=== PATIENT | female | born 1970 | race Hispanic/Latino ===

== ENCOUNTER 2020-08-16 15:17 | Observation (INO) | payer OTHER ==
[2020-08-16 15:52] LABS: Absolute Lymphocytes (CBC) 5.1 K/uL (0.7-4.9); Hematocrit 43.1 % (36.0-45.0); Lymphocytes % 28.8 % (15.3-44.8); MPV 9.4 fL (7.6-11.3)
--- NOTE | 2020-08-16 15:54 | RAD REPORT ---
EXAM DESCRIPTION: RAD - Chest Single View - 08/16/2020 3:48 pm CLINICAL HISTORY: CHEST PAIN Chest pain. COMPARISON: No comparisons FINDINGS: Portable technique limits examination quality. The lungs are grossly clear. The heart is normal in size. No displaced fractures. IMPRESSION: No acute intrathoracic process suspected.
[2020-08-16 15:57] LABS: Protime INR 0.92
[2020-08-16 16:07] LABS: ALT/SGPT 20 U/L (12-78); AST/SGOT 13 U/L (15-37); Albumin 3.2 g/dL (3.4-5.0); Alkaline Phosphatase 113 U/L (45-117); BUN Blood Urea Nitrogen 18 mg/dL (7-18); Bicarbonate 24 mmol/L (21-32); Bilirubin Direct < 0.1 mg/dL (0-0.2); Bilirubin Total 0.3 mg/dL (0.2-1.0); Glucose Level 78 mg/dL (74-106); Magnesium 2.1 mg/dL (1.8-2.4); NT PRO-BNP 59 pg/mL (<125); Potassium 3.7 mmol/L (3.5-5.1); Protein, Total 7.5 g/dL (6.4-8.2); Sodium Level 143 mmol/L (136-145); Troponin (Emerg Dept Use Only) < 0.02 ng/mL (0.0-0.045)
[2020-08-16] MEDS ORDERED: MORPHINE 4 MG/ML SYR ONE (16:07)
[2020-08-16] MEDS ORDERED: ONDANSETRON 4 MG/2 ML VIAL ONE (16:07)
[2020-08-16 16:33] LABS: Blood Morphology Comment NOT SEEN (NOT SEEN); Platelet Estimate ADEQ
--- NOTE | 2020-08-16 16:43 | RAD REPORT ---
EXAM DESCRIPTION: CT - Chest For Pe Angio - 08/16/2020 4:36 pm CLINICAL HISTORY: Chest pain. CHEST PAIN COMPARISON: No comparisons TECHNIQUE: CT angiogram of the pulmonary arteries was performed with MIP. All CT scans are performed using dose optimization technique as appropriate and may include automated exposure control or mA/KV adjustment according to patient size. FINDINGS: No evidence of pulmonary thromboembolism. No acute aortic finding demonstrated. The lungs are clear. No significant pericardial or pleural fluid. No concerning bony finding. IMPRESSION: No evidence of pulmonary thromboembolism. No acute lung findings.
--- NOTE | 2020-08-16 16:56 | ER ---
Nurse's Notes [facility] Name: Rebecca Sagastume Age: 50 yrs Sex: Female : 1970 Arrival Date: 08/16/2020 Time: 15:18 Bed 7 Private MD: Diagnosis: Chest pain, unspecified Presentation: 08/16 15:18 Chief complaint: EMS states: BURNING CHEST PAIN AND CYANOSIS WHILE MOWING LAWN. bp Coronavirus screen: At this time, the client does not indicate any symptoms associated with coronavirus-19. Ebola Screen: No symptoms or risks identified at this time. Initial Sepsis Screen: Does the patient meet any 2 criteria? HR > 90 bpm. No. Patient's initial sepsis screen is negative. Does the patient have a suspected source of infection? No. Patient's initial sepsis screen is negative. Risk Assessment: Do you want to hurt yourself or someone else? Patient reports no desire to harm self or others. Onset of symptoms was August 15, 2020 at 18:00. 15:18 Method Of Arrival: EMS: [facility] bp 15:18 Acuity: MER 3 bp Triage Assessment: 15:22 General: Appears in no apparent distress. uncomfortable, obese, Behavior is bp cooperative, appropriate for age, anxious. Pain: Denies pain. EENT: No deficits noted. Neuro: No deficits noted. Cardiovascular: Rhythm is sinus tachycardia. Respiratory: No deficits noted. GI: No signs and/or symptoms were reported involving the gastrointestinal system. : No signs and/or symptoms were reported regarding the genitourinary system. Derm: No deficits noted. Musculoskeletal: No deficits noted. 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 - Social history:: Smoking status: Patient denies any tobacco usage or history of. Screenin:23 Abuse screen: Denies threats or abuse. Denies injuries from another. Nutritional bp screening: No deficits noted. Tuberculosis screening: No symptoms or risk factors identified. Fall Risk None identified. 15:23 Abuse screen: Denies threats or abuse. Nutritional screening: No deficits noted. tw2 Tuberculosis screening: No symptoms or risk factors identified. Fall Risk None identified. Assessment: 15:23 General: SEE TRIAGE NOTE. bp 15:33 Pain: Complains of pain in chest Pain does not radiate. Pain began 1 day ago. pt states tw2 "it is still bothering me", provider notified. 16:40 Reassessment: PT RETURNED FROM CT. STATES NO CHANGE IN PAIN, PROVIDER NOTIFIED. bp 17:04 Reassessment: Patient appears in no apparent distress at this time. No changes from tw2 previously documented assessment. Patient and/or family updated on plan of care and expected duration. Pain level reassessed. Patient is alert, oriented x 3, equal unlabored respirations, skin warm/dry/pink. hospitalist Dr. Blayne Daniel at bedside at this time. Patient states symptoms have not improved. 18:00 Reassessment: Patient appears in no apparent distress at this time. PT SEEN BY ADMIT MD loving AND GI C/S. ADMIT IN PROCESS. 19:12 Reassessment: Patient appears in no apparent distress at this time. Patient and/or mg2 family updated on plan of care and expected duration. Pain level reassessed. Patient is alert, oriented x 3, equal unlabored respirations, skin warm/dry/pink. patient has fibromyalgia. provider informed about her pain and ordered pain medicine. 19:38 Reassessment: Report called to Celina SOTO on second floor. mg2 Vital Signs: 15:18 BP 159 / 96; Pulse 104; Resp 20; Temp 98.2; Pulse Ox 97% ; Weight 121.56 kg; Height 5 bp ft. 11 in. (180.34 cm); 15:41 BP 144 / 90; Pulse 85; Resp 20; Pulse Ox 98% on R/A; Pain 8/10; tw2 16:40 BP 127 / 104; Pulse 79; Resp 11; Pulse Ox 100% ; bp 17:30 BP 124 / 94; Pulse 79; Resp 24; Pulse Ox 100% ; bp 18:30 BP 140 / 90; Pulse 74; Resp 22; Pulse Ox 98% ; bp 19:05 BP 130 / 100; Pulse 74; Resp 18; Pulse Ox 97% on R/A; mg2 15:18 Body Mass Index 37.38 (121.56 kg, 180.34 cm) bp 15:41 provider notified. tw2 ED Course: 15:18 Patient arrived in ED. bp 15:19 Triage completed. bp 15:23 Sandra Celestin, RN is Primary Nurse. tw2 15:23 Arm band placed on. bp 15:23 Patient has correct armband on for positive identification. Bed in low position. Call bp light in reach. Side rails up X2. equipment monitor phototypesetting on. Pulse ox on. NIBP on. 15:25 Lul Tapia PA is PHCP. jmm 15:25 Danish Norris MD is Attending Physician. jmm 15:38 Inserted saline lock: 20 gauge in right forearm, using aseptic technique. Blood tw2 collected. 15:41 Patient maintains SpO2 saturation greater than 95% on room air. tw2 15:43 XRAY Chest (1 view) In Process Unspecified. EDMS 16:01 Notified Nurse Practitioner and/or Physician Manager Store of a critical lab result(s), tw2 D-Dimer 612. 16:36 CT Chest For PE Angio In Process Unspecified. EDMS 16:56 Blayne Daniel MD is Hospitalizing Provider. [facility] 19:39 No provider procedures requiring assistance completed. Patient admitted, IV remains in mg2 place. 19:50 covid swab sent. mg2 Administered Medications: 15:58 Drug: Zofran (Ondansetron) 4 mg Route: IVP; Site: right forearm; tw2 16:58 Follow up: Response: No adverse reaction tw2 16:00 Drug: morphine 4 mg Route: IVP; Site: right forearm; tw2 16:58 Follow up: Response: No adverse reaction; Pain is unchanged, physician notified; RASS: tw2 Alert and Calm (0) 17:02 Drug: Aspirin Chewable Tablet 324 mg Route: PO; tw2 18:19 Follow up: Response: No adverse reaction bp 17:03 Drug: Pepcid 20 mg Route: IVP; Site: right forearm; tw2 18:18 Follow up: Response: No adverse reaction bp 19:12 Drug: [place] 10 mg-325 mg 1 tabs Route: PO; mg2 Outcome: 16:56 Decision to Hospitalize by Provider. alberto 19:39 Instructed on the need for admit, Demonstrated understanding of instructions. mg2 19:49 Admitted to Med/surg accompanied by tech, via wheelchair, room 213, with chart, Report mg2 called to CHARLES Patrick 19:49 Condition: good 19:56 Patient left the ED. mg2 Signatures: Dispatcher [employer] EDMS Lul Tapia PA PA jmm Wise, Tara RN RN tw2 Timothy Pinto RN RN bp Reji Grullon, CHARLES RN mg2
--- NOTE | 2020-08-16 16:56 | EDPHYS ---
Physician Documentation [facility] Name: Rebecca Sagastume Age: 50 yrs Sex: Female : 1970 Arrival Date: 08/16/2020 Time: 15:18 Bed 7 Private MD: ED Physician Danish Norris HPI: 08/16 15:51 This 50 yrs old Female presents to ER via EMS with complaints of Chest Pain. m 15:51 The patient or guardian reports chest pain that is located primarily in the substernal [facility] area. Onset: gradually, 1 day(s) ago. The pain does not radiate. Associated signs and symptoms: Pertinent positives: headache. The chest pain is described as burning. Duration: The patient or guardian reports a single episode, that is still ongoing, and worsening. Modifying factors: The symptoms are alleviated by nothing. the symptoms are aggravated by lying on right side. This is a 50 year old female with a history of RA, HTN, that presents to the ED with complaints of chest pain beginning yesterday while mowing her lawn. Patient states the pain has been constant and worsened by lying her right side. . 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 - Social history:: Smoking status: Patient denies any tobacco usage or history of. ROS: 15:51 Constitutional: Negative for fever, chills, and weight loss. jmm 15:51 Abdomen/GI: Negative for abdominal pain, nausea, vomiting, diarrhea, and constipation. 15:51 Cardiovascular: Positive for chest pain. 15:51 Neuro: Positive for headache. 15:51 All other systems are negative. Exam: 15:33 ECG was reviewed by the Attending Physician. jmm 15:51 Constitutional: This is a well developed, well nourished patient who is awake, alert, jmm and in no acute distress. Head/Face: atraumatic. Eyes: EOMI, no conjunctival erythema appreciated ENT: Moist Mucus Membranes Neck: Trachea midline, Supple 15:51 Respiratory: Normal respirations, no respiratory distress appreciated Abdomen/GI: Non distended, soft Back: Normal ROM Skin: General appearance color normal MS/ Extremity: Moves all extremities, no obvious deformities appreciated, no edema noted to the lower extremities Neuro: Awake and alert, normal gait Psych: Behavior is normal, Mood is normal, Patient is cooperative and pleasant 15:51 Chest/axilla: Inspection: normal, Palpation: tenderness, that is moderate, of the anterior aspect of right upper chest. 15:51 Cardiovascular: Rate: normal, Rhythm: regular, Pulses: no pulse deficits are appreciated. Vital Signs: 15:18 BP 159 / 96; Pulse 104; Resp 20; Temp 98.2; Pulse Ox 97% ; Weight 121.56 kg; Height 5 bp ft. 11 in. (180.34 cm); 15:41 BP 144 / 90; Pulse 85; Resp 20; Pulse Ox 98% on R/A; Pain 8/10; tw2 16:40 BP 127 / 104; Pulse 79; Resp 11; Pulse Ox 100% ; bp 17:30 BP 124 / 94; Pulse 79; Resp 24; Pulse Ox 100% ; bp 18:30 BP 140 / 90; Pulse 74; Resp 22; Pulse Ox 98% ; bp 19:05 BP 130 / 100; Pulse 74; Resp 18; Pulse Ox 97% on R/A; mg2 15:18 Body Mass Index 37.38 (121.56 kg, 180.34 cm) bp 15:41 provider notified. tw2 MDM: 15:45 Patient medically screened. [facility] 16:55 Data reviewed: vital signs, nurses notes, lab test result(s), EKG, radiologic studies, [facility] CT scan, plain films. ED course: I discussed the patient with Dr. Daniel whom accepted admission. . 08/16 15:33 Order name: Basic Metabolic Panel; Complete Time: 16:36 [facility] 08/16 15:33 Order name: CBC with Diff; Complete Time: 16:36 [facility] 08/16 15:33 Order name: LFT's; Complete Time: 16:36 [facility] 08/16 15:33 Order name: Magnesium; Complete Time: 16:36 [facility] 08/16 15:33 Order name: NT PRO-BNP; Complete Time: 16:36 [facility] 08/16 15:33 Order name: PT-INR; Complete Time: 16:36 [facility] 08/16 15:33 Order name: Troponin (emerg Dept Use Only); Complete Time: 16:36 [facility] 08/16 15:33 Order name: XRAY Chest (1 view); Complete Time: 15:57 [facility] 08/16 15:33 Order name: D-Dimer; Complete Time: 16:36 [facility] 08/16 16:06 Order name: Manual Differential; Complete Time: 16:36 [facility] 08/16 16:07 Order name: CT Chest For PE Angio; Complete Time: 16:45 [facility] 08/16 18:20 Order name: Slides For Pathologist Review: CBC SMEAR FOR ABNORMAL CELLS bp 08/16 19:28 Order name: COVID-19 mg2 08/16 15:33 Order name: EKG; Complete Time: 15:34 [facility] 08/16 15:33 Order name: Cardiac monitoring; Complete Time: 15:42 [facility] 08/16 15:33 Order name: EKG - Nurse/Tech; Complete Time: 15:42 [facility] 08/16 15:33 Order name: IV Saline Lock; Complete Time: 15:42 [facility] 08/16 15:33 Order name: Labs collected and sent; Complete Time: 15:42 [facility] 08/16 15:33 Order name: O2 Per Protocol; Complete Time: 15:42 [facility] 08/16 15:33 Order name: O2 Sat Monitoring; Complete Time: 15:42 [facility] 08/16 17:19 Order name: CONS Physician Consult EDMS EC:33 Rate is 89 beats/min. Rhythm is regular. QRS [place] is Normal. CA interval is normal. QRS jmm interval is normal. QT interval is normal. No Q waves. T waves are Normal. No ST changes noted. Reviewed by me. Administered Medications: 15:58 Drug: Zofran (Ondansetron) 4 mg Route: IVP; Site: right forearm; tw2 16:58 Follow up: Response: No adverse reaction tw2 16:00 Drug: morphine 4 mg Route: IVP; Site: right forearm; tw2 16:58 Follow up: Response: No adverse reaction; Pain is unchanged, physician notified; RASS: tw2 Alert and Calm (0) 17:02 Drug: Aspirin Chewable Tablet 324 mg Route: PO; tw2 18:19 Follow up: Response: No adverse reaction bp 17:03 Drug: Pepcid 20 mg Route: IVP; Site: right forearm; tw2 18:18 Follow up: Response: No adverse reaction bp 19:12 Drug: [place] 10 mg-325 mg 1 tabs Route: PO; mg2 Disposition: 08/17 13:32 Co-signature as Attending Physician, Danish Norris MD I agree with the assessment and kdr plan of care. Disposition: 08/16/20 16:56 Hospitalization ordered by Blayne Daniel for Observation. Preliminary diagnosis is Chest pain, unspecified. - Bed requested for Telemetry/MedSurg (observation). - Status is Observation. mg2 - Condition is Stable. - Problem is new. - Symptoms have improved. Signatures: Dispatcher [employer] EDMS Danish Norris MD MD [facility] Lul Tapia PA PA [facility] Dirk Meza em1 Sandra Celestin RN RN tw2 Timothy Pinto, RN RN bp Reji Grullon, RN RN mg2 Corrections: (The following items were deleted from the chart) 08/16 18:51 16:56 Hospitalization Ordered by Blayne Daniel MD for Observation. Preliminary em1 diagnosis is Chest pain, unspecified. Bed requested for Telemetry/MedSurg (observation). Status is Observation. Condition is Stable. Problem is new. Symptoms have improved. [facility] 19:56 18:51 08/16/2020 16:56 Hospitalization Ordered by Blayne Daniel MD for Observation. mg2 Preliminary diagnosis is Chest pain, unspecified. Bed requested for Telemetry/MedSurg (observation). Status is Observation. Condition is Stable. Problem is new. Symptoms have improved. em1
[2020-08-16] MEDS ORDERED: ASPIRIN 81 MG CHEWABLE TABLET ONE (17:12)
[2020-08-16] MEDS ORDERED: FAMOTIDINE 20 MG/2 ML VIAL IV ONE (17:12)
--- NOTE | 2020-08-16 17:49 | P.HP ---
Certification for Inpatient Patient admitted to: Observation With expected LOS: <2 Midnights Practitioner: I am a practitioner with admitting privileges, knowledge of patient current condition, hospital course, and medical plan of care. Services: Services provided to patient in accordance with Admission requirements found in Title 42 Section 412.3 of the Code of Federal Regulations Patient History Date of Service: 08/16/20 Reason for admission: Chest pain History of Present Illness: 50 yo F , PMH: HTN, RA, fibromyalgia, prior smoker who presents to the ED due to substernal burning chest pain that began yesterday and has been constant. She states she was doing yd work when this began, with associated pallor and purple lips. Since then she has been feeling as though her heart is going to be beating out of her chest. She also reports she coughed up some bloody phlegm. She otherwise reports being in her usual state of health. She endorses taking Advil 08-12 pills a day for the past several months. She denies any history of gastric ulcer, no abdominal pain, no nausea/vomiting In the ED, lab work revealed a leukocytosis 17.7, hemoglobin 15.2, elevated D- dimer at 6:12, negative troponin. CTA: No evidence of PE, no acute lung findings Allergies Sulfa (Sulfonamide Antibiotics) Allergy (Verified 08/16/20 19:24) Rash - Past Medical/Surgical History -: HTN -: RA -: Fibromyalgia Past Surgical History: Unable to obtain - Family History Father -: Heart disease Sister -: GI disease (Ulcers) - Social History Smoking Status: Former smoker Alcohol use: No Place of Residence: Home Review of Systems 10-point ROS is otherwise unremarkable Physical Examination - Physical Exam General: Alert, In no apparent distress, Oriented x3 HEENT: Mucous membr. moist/pink, Sclerae nonicteric Neck: JVD not distended Respiratory: Clear to auscultation bilaterally, Normal air movement Cardiovascular: No edema, Regular rate/rhythm, Normal S1 S2 Musculoskeletal: No erythema, No tenderness Integumentary: No rashes Neurological: Normal speech, Normal affect - Studies Laboratory Data (last 24 hrs) 08/16/20 15:38: PT 10.9, INR 0.92 08/16/20 15:38: WBC 17.7 H, Hgb 15.2 H, Hct 43.1, Plt Count 240 08/16/20 15:38: Sodium 143, Potassium 3.7, BUN 18, Creatinine 0.91, Glucose 78, Magnesium 2.1, Total Bilirubin 0.3, AST 13 L, ALT 20, Alkaline Phosphatase 113 Assessment and Plan - Advance Directives Does patient have a Living Will: No Does patient have a Durable POA for Healthcare: No Physician Review Additional Text: Chest pain HTN RA Fibromyalgia -given her chronic inflammatory state and family history, history of smoking, patient does have risk factors for coronary artery disease -initially EKG without ischemic changes, troponin initially negative, will trend troponins -cardiology consulted -possible GI etiology given the amount of Advil patient takes, and reported coughing up blood -GI, Dr. Mobley consulted -pain control with morphine, patient received aspirin -will also give Protonix and Carafate for possible GI etiology -obtain home meds and restart as appropriate Dispo: pending workup, anticipate dc home in 24-48hrs Time Spent Managing Pts Care (In Minutes): 55
[2020-08-16] MEDS ORDERED: HYDROCODONE/APAP 10/325 TAB ONE (19:24)
[2020-08-16] MEDS ORDERED: ACETAMINOPHEN 500 MG TAB PO PRN (20:12)
[2020-08-16] MEDS: SUCRALFATE 1GM/10ML UCUP FT SCH (21:43)
[2020-08-16 22:23] VITALS: BMI 38.7
[2020-08-16] MEDS: MORPHINE 2 MG/ML SYR IV PRN (22:28)
[2020-08-17] MEDS: MORPHINE 2 MG/ML SYR IV PRN ×4 (04:01→22:51)
[2020-08-17 04:19] LABS: Protime INR 0.93
[2020-08-17 04:32] LABS: Absolute Lymphocytes (CBC) 4.8 K/uL (0.7-4.9); Basophils % 0.8 % (0-1.3); Hematocrit 43.7 % (36.0-45.0); MPV 10.5 fL (7.6-11.3); RBC Red Blood Cell Count 4.68 M/uL (3.86-4.86)
[2020-08-17 04:35] LABS: Albumin 3.1 g/dL (3.4-5.0); Bilirubin Total 0.3 mg/dL (0.2-1.0); Magnesium 2.2 mg/dL (1.8-2.4); Potassium 4.3 mmol/L (3.5-5.1); Protein, Total 7.6 g/dL (6.4-8.2)
[2020-08-17] MEDS ORDERED: GABAPENTIN 300 MG CAP PO PRN (04:58)
[2020-08-17] MEDS ORDERED: BACLOFEN 10 MG TAB PO PRN (04:58)
[2020-08-17 05:21] LABS: Blood Morphology Comment NOT SEEN (NOT SEEN); Platelet Estimate ADEQ
[2020-08-17] MEDS ORDERED: INFLUENZA VACCINE (for 3y+) 0.5 ML DOSE IMVAC ONE (06:00)
[2020-08-17] MEDS: SUCRALFATE 1GM/10ML UCUP FT SCH ×4 (07:30→20:15)
[2020-08-17] MEDS: DULOXETINE 30 MG CAP PO SCH (08:46)
[2020-08-17] MEDS: PANTOPRAZOLE 40MG TABLET PO SCH ×2 (08:46→15:49)
[2020-08-17] MEDS: ONDANSETRON 4 MG/2 ML VIAL IV PRN ×2 (08:46→22:52)
[2020-08-17] MEDS ORDERED: NA CHLORIDE 0.9% 1,000 ML ONE (14:08)
[2020-08-17] MEDS ORDERED: propofoL 200 MG/20 ML VIAL IV ONE (14:33)
--- NOTE | 2020-08-17 14:47 | ENDO RPT ---
[address], [address] EGD PROCEDURE REPORT EXAM DATE: 08/17/2020 PATIENT NAME: Rebecca Sagastume MR#: [id number] BIRTHDATE: 1970 ATTENDING: Erik Mobley Dr STATUS: inpatient LIGHT EQUIPMENT OPERATOR: Leigh Mccullough RN and Maritza Del Valle RN INDICATIONS: The patient is a 50 yr old Female here for an EGD due to hematemesis versus other PROCEDURE PERFORMED: EGD with biopsy MEDICATIONS: Per Anesthesia. TOPICAL ANESTHETIC: none CONSENT: The patient understands the risks and benefits of the procedure and understands that these risks include, but are not limited to: sedation, allergic reaction, infection, perforation and/or bleeding. Alternative means of evaluation and treatment include, among others: physical exam, x-rays, and/or surgical intervention. The patient elects to proceed with this endoscopic procedure. DESCRIPTION OF PROCEDURE: During intra-op preparation period all mechanical medical equipment was checked for proper function. Hand hygiene and appropriate measures for infection prevention was taken. Procedure, possible complications, and alternatives including but not limited to the possibility of bleeding, perforation, tear, infection, sepsis, need for surgery, need for blood transfusion, and anesthesia related complications were explained to the patient. After the risks, benefits and alternatives of the procedure were thoroughly explained, Informed consent was verified, confirmed and timeout was successfully executed by the treatment team. The patient was placed in the left lateral position. The patient was anesthetized with topical anesthesia. Through the anesthetized oropharyngeal area, the scope was passed without any difficulty. The EG-[id number] ([id number]) and [id number] ([id number]) endoscope was introduced through the mouth and advanced to the third portion of the duodenum. Retroflexed views revealed a small hiatal hernia. The gastroscope was then slowly withdrawn and removed. A small hiatal hernia was found Mild gastritis was found in the body < the antrum of the stomach. Multiple biopsies were obtained and sent to pathology. ADVERSE EVENTS: There were no complications. IMPRESSIONS: 1. Small hiatal hernia 2. Mild gastritis in the body < the antrum of the stomach, s/p biopsies RECOMMENDATIONS: 1. await biopsy results 2. acid suppression therapy REPEAT EXAM: Erik Mobley Dr eSigned: Erik Mobley Dr 08/17/2020 2:47 PM cc: CPT CODES: ICD9 CODES: PATIENT NAME: Rebecca Sagastume MR#: [id number]
--- NOTE | 2020-08-17 18:02 | P.PN ---
Subjective Date of Service: 08/17/20 Chief Complaint: Chest pain Subjective: Other (Continues with chest pressure, some improvement with burning sensation of chest Also with some chest tenderness which is different than the other pains) Physical Examination - Vital Signs Temperature: 97.5 F Blood Pressure: 135/77 Pulse: 65 Respirations: 18 Pulse Ox (%): 98 - Physical Exam General: Alert, Mild distress (Mild discomfort) HEENT: Mucous membr. moist/pink Respiratory: Clear to auscultation bilaterally, Normal air movement Cardiovascular: No edema, Regular rate/rhythm, Other (Chest wall tenderness to palpation) Gastrointestinal: Soft and benign, Non-distended, No tenderness Musculoskeletal: No erythema, No tenderness Integumentary: No rashes Neurological: Normal speech, Normal affect Assessment & Plan Physician Review Additional Text: Chest pain HTN RA Fibromyalgia -given her chronic inflammatory state and family history, history of smoking, patient does have risk factors for coronary artery disease -initial EKG without ischemic changes, troponin negative x3 -cardiology consulted -continues with moderate chest pressure. She reports is unrelated to the burning in her chest and the tenderness. She has never had a sensation like this before -burning in her chest, likely GI etiology given the amount of Advil patient takes, and reported coughing up blood -GI, Dr. Mobley consulted - for EGD today -Protonix and Carafate for possible GI etiology - patient reports this has improved her burning sensation, has not been improved her pressure like sensation -continue home meds Dispo: pending EGD, Cardiology concern this chest pressure may be cardiac etiology, suggesting monitoring the patient's another night to see if improves and also based off EGD results Time Spent Managing Pts Care (In Minutes): 35
--- NOTE | 2020-08-17 19:20 | CON ---
Date of Consultation: 08/16/2020 Reason For Consultation: Possible hematemesis. History Of Present Illness: The patient is a 50-year-old white female with history of hypertension, rheumatoid arthritis, fibromyalgia, presented to the hospital with chest pain. Cardiology evaluation today, troponin I and EKG have been unremarkable as per chart review. The patient also says that joann alvarenga either vomited blood or coughed up blood in a phlegm recently as well. Asked to see patient to [facility] for this. She reports taking Advil 8-12 tablets a day over the past several months. So suspic ion as she may have gastritis or peptic ulcer disease secondary to this excessive amount of ibuprofen being taken daily for her fibromyalgia, back pain, and rheumatoid arthritis pain. Past Medical History: Significant for rheumatoid arthritis, hypertension, fibromyalgia, essential tr emors. Allergies: TO SULFA MEDICATIONS. Medications: At home include prednisone. List will be below when I finish this. Social History: She is , 2 children, ages 29 and 23 years of age. This is a second marriage. Tobacco is positive. A third pack per day tobacco history. No alcohol. Family History: Father is alive with coronary artery disease, status post 4 vessel CABG and also car diac stents with 81 years of age. Mother at the age of 39 due to rheumatoid arthritis, which pr ogressed to polymyositis with possible cancer. She has a sister with gastric ulcers or peptic ulcer disease. Review of Systems: The patient has back pain, chest pain, but no shortness of breath. Possible hematemesis versus hemop tysis with no hematemesis, coffee-grounds emesis, melena, hematochezia, hematuria, dysuria, polydipsi a, dyspepsia. No shortness of breath, seizure, syncope. No depression, anxiety noted. Physical Examination: Vital Signs: The patient is 5 feet 11, 178 pounds, BMI of 38.8 kg/meter sq with a temperature of 98. 3 degrees Fahrenheit, pulse 85, respirations 20, blood pressure 144/90, O2 saturation 98% in the [facility] area. General: She is an obese female lying in bed, in no acute distress. Older sister is at bedside. HEENT: Normocephalic, atraumatic. Anicteric. Pupils are equal, round, and reactive to light. Extr aocular movements are intact. Oropharynx is clear. Neck: Supple, no masses. Respirations: Clear to auscultation bilaterally. Cardiac: Regular rate and rhythm. No gallops or rubs. Abdomen: Positive bowel sounds. Soft, nontender, nondistended. No hepatosplenomegaly. Mildly obes e. Extremities: No clubbing, cyanosis, or edema. 2+ pulses. Neuro: Alert and oriented X3. Grossly nonfocal. 5/5 motor strength. Sensation intact to light wan ch. Laboratory Data: The patient has a white count of 17.7, on prednisone. Hemoglobin 15.2, hematocrit 43.1, MCV of 92, platelet count 240, polys of 61%, lymphocytes 29%, monocytes 9%, eosinophils 1%. PT of 10.9, INR of 0.92. D-dimer 612. Sodium 143, potassium 3.7, chloride 113, bicarb 24, BUN of 18, creatinine 0.91, glucose 78, calcium 8.9, magnesium 2.1. Total bilirubin 0.3, direct bilirubin less than 0.1. AST of 13, ALT of 20, alkaline phosphatase 113. Rapid troponin I of less than 0.02 at [facility] x2. B-type natriuretic peptide of 59 is negative. Total protein 7.5, albumin 3.2. Cholesterol 1 77, triglycerides 196, LDL of 104, HDL 34. Imaging: Chest x-ray, no acute pulmonary findings. CT chest, no evidence of pulmonary embolism and no acute lung findings on CT of the chest. Impression: 1.Hematemesis. The patient is consuming 12 Advil per day for her fibromyalgia, back pain, rheumatoi d arthritis pain, could have peptic ulcer disease like her sister. I did not she suffer from hematem esis. Still it is unclear at this time whether this it is hematemesis or hemoptysis. 2.Chest pain could be due to her excessive use of pills with sometimes causing pill esophagitis lead ing to hematemesis or other. 3.White count 17.7, polys only 60.6%, indicative of hematologic disorder or it is from her prednison e use, which she has been using. 4.History of hypertension, rheumatoid arthritis, fibromyalgia, and essential tremors. Medications: Home medications are: 1.Gabapentin. 2.Higginson. 3.Baclofen. 4.Duloxetine. 5.Meclizine. 6.Prednisone 10 mg p.o. daily. Recommendation: 1.Await Cardiology evaluation. 2.May consider EGD evaluation. 3.PPI therapy. 4.Serial H and H, and transfuse p.r.n. 5.Consider Hematology consult. 6.Check CBC with smear noted with polyp, probably related to her prednisone use, the elevation of he r white count with no left shift. WS/MODL Voice ID: [id number] Report ID: [id number]
[2020-08-18 05:32] LABS: Absolute Lymphocytes (CBC) 2.5 K/uL (0.7-4.9); Basophils % 0.7 % (0-1.3); Hematocrit 43.5 % (36.0-45.0); Lymphocytes % 25.4 % (15.3-44.8); MPV 9.8 fL (7.6-11.3); RBC Red Blood Cell Count 4.67 M/uL (3.86-4.86)
[2020-08-18 05:48] LABS: Magnesium 2.3 mg/dL (1.8-2.4); Potassium 3.8 mmol/L (3.5-5.1)
[2020-08-18] MEDS ORDERED: POTASSIUM CL SA 10 MEQ TAB PO ONE (08:00)
[2020-08-18] MEDS: PANTOPRAZOLE 40MG TABLET PO SCH (08:29)
[2020-08-18] MEDS: DULOXETINE 30 MG CAP PO SCH (08:29)
[2020-08-18] MEDS: SUCRALFATE 1GM/10ML UCUP FT SCH ×2 (08:29→11:43)
[2020-08-18 10:55] VITALS: O2SAT 98
--- NOTE | 2020-08-18 11:38 | P.PN ---
Subjective Date of Service: 08/18/20 Chief Complaint: Chest pain Subjective: Improving (She denies chest pain now on PPI therapy. She denies seeing any more blood. She feels well and wants to go home.) Review of Systems Unremarkable Physical Examination - Vital Signs Temperature: 97.5 F Blood Pressure: 136/71 Pulse: 78 Respirations: 18 Pulse Ox (%): 97 - Physical Exam General: Alert, In no apparent distress, Oriented x3, Cooperative HEENT: Atraumatic, Normocephalic, PERRLA, EOMI Neck: Supple Respiratory: Normal air movement Cardiovascular: Normal pulses Gastrointestinal: Soft and benign, No tenderness, No masses, No rebound, No guarding Musculoskeletal: No swelling, No erythema Neurological: Normal speech, Normal strength at 5/5 x4 extr Assessment And Plan - Current Problems (Diagnosis) (1) Chest pain Current Visit: Yes Status: Acute (2) Hematemesis Current Visit: Yes Status: Acute (3) Hemoptysis Current Visit: Yes Status: Acute (4) Fibromyalgia Current Visit: Yes Status: Acute (5) Rheumatoid arthritis Current Visit: Yes Status: Acute (6) Gastritis Current Visit: Yes Status: Acute (7) Hiatal hernia Current Visit: Yes Status: Acute (8) Obesity (BMI 30-39.9) Current Visit: Yes Status: Acute Comment: BMI 38.8 - Plan REC: 1) continue PPI bid 2) weight loss 3) GI clinic f/u Physician Review Additional Text: Chest pain HTN RA Fibromyalgia -given her chronic inflammatory state and family history, history of smoking, patient does have risk factors for coronary artery disease -initial EKG without ischemic changes, troponin negative x3 -cardiology consulted -continues with moderate chest pressure. She reports is unrelated to the burning in her chest and the tenderness. She has never had a sensation like this before -burning in her chest, likely GI etiology given the amount of Advil patient takes, and reported coughing up blood -GI, Dr. Mobley consulted - for EGD today -Protonix and Carafate for possible GI etiology - patient reports this has improved her burning sensation, has not been improved her pressure like sensation -continue home meds Dispo: pending EGD, Cardiology concern this chest pressure may be cardiac etiology, suggesting monitoring the patient's another night to see if improves and also based off EGD results
--- NOTE | 2020-08-18 13:27 | CON ---
Date of Consultation: 08/17/2020 Reason For Consultation: Chest pain. History Of Present Illness: This is a 50-year-old female with history of hypertension, rheumatoid ar thritis, fibromyalgia, recently quit smoking, used to smoke 5-10 cigarettes per day up until a few da ys back, comes in with burning sensation in the retrosternal area. This is constant for a day prior to presentation, not related to exertion. It was documented that she had some purple lips as well at that time with some shortness of breath, coughing with some sputum production. No particular chest pain. Evaluated by GI and needs to have an EGD for possible GI source of the symptoms. Past Medical History: As outlined above in the HPI. Medications: Refer to reconciliation sheet for detailed list. Allergies: SULFA. Social History: She is a smoker. Does not drink, use any drugs. Family History: No premature coronary artery disease or cancer. Review of Systems: All systems reviewed and they were negative except what mentioned in HPI. Physical Examination: Vital Signs: Temperature is 97.5, pulse 78, breathing 18, blood pressure is 136/71, saturating 97% o n room air. General: Pleasant, middle-aged female, obese, in no distress. Head and Neck: Pupils are equal, react to light. Intact eye movements. No JVD. No cervical lympha denopathy. Neck: Supple. Thyroid is not enlarged. Lungs: Clear to auscultation bilaterally. No rhonchi, rales, or crackles. No accessory muscle use. Heart: Regular rate and rhythm. No extra sounds. Abdomen: Soft, nontender. Bowel sounds positive. No organomegaly. No masses or hernia. No rigidi ty or rebound. Extremities: No edema, clubbing, cyanosis. Intact pulses. Skin: No rash noted. Neurologic: Alert, awake, oriented x3. No acute focal deficits appreciated. Investigations: Troponin x3 are negative. Creatinine is 0.81. LDL cholesterol is 104. Hemoglobin is 14.9; white blood cell count is 14.6, down from 17.7. EKG without specific acute abnormalities. Assessment And Plan: 1.Chest pain, burning, a pressure-like, constant which makes it atypical. Cardiac enzymes are negat nadeem. No specific acute EKG changes. Further workup is recommended with an exercise stress test. If the patient's pain gets under control and the cardiac enzymes remain negative, the patient can be re leased to follow up as an outpatient with exercise stress test and echo. 2.To follow on the EGD results to rule out GI as a source. Thank you for the consultation. /JARRED Voice ID: [id number] Report ID: [id number]
--- NOTE | 2020-08-18 14:35 | P.DS ---
Admission Date: 08/16/20 Discharge Date: 08/18/20 Primary Care Provider: Dr. Cash Davis Disposition: ROUTINE DISCHARGE Discharge Condition: GOOD Reason for Admission: Chest pain Consultations: Cardiology - Dr. Calvillo GI - Dr. Mobley Procedures: CXR (08/16): No acute intrathoracic process. CTA chest (08/16): No evidence of PE, no acute lung findings. EGD (08/17): Small hiatal hernia, mild gastritis in the body/antrum, s/p biopsies Problem list Burning in chest pain Pressure-like chest pain HTN Rheumatoid arthritis Fibromyalgia Brief History of Present Illness: 50 yo F , PMH: HTN, RA, fibromyalgia, prior smoker who presents to the ED due to substernal burning chest pain that began yesterday and has been constant. She states she was doing yd work when this began, with associated pallor and purple lips. Since then she has been feeling as though her heart is going to be beating out of her chest. She also reports she coughed up some bloody phlegm. She otherwise reports being in her usual state of health. She endorses taking Advil 08-12 pills a day for the past several months. She denies any history of gastric ulcer, no abdominal pain, no nausea/vomiting In the ED, lab work revealed a leukocytosis 17.7, hemoglobin 15.2, elevated D- dimer at 6:12, negative troponin. CTA: No evidence of PE, no acute lung findings Hospital Course: Patient was admitted, troponins were trended and remained negative, she was started on b.i.d. Protonix and Carafate p.r.n.. She reported improvement in her burning chest pain sensation. GI was consulted and and took patient for EGD (mild gastritis). Cardiology was consulted due to patient's pressure-like sensation. This initially did not improve, but then on the evening of 08/17 and into the morning of 08/18 she reported slow improvement. It was discussed that this may have a cardiac etiology since she had resolution of her burning pain but this pressure-like sensation persisted. The option to stay and have a stress test was given, however patient preferred to do this as an outpatient since she had notable improvement. Of note, her leukocytosis resolved. She will be discharged home on Protonix 40 mg b.i.d.. She was advised to follow up with her PCP within 3-5 days, GI and a few weeks, Cardiology in 2-3 weeks to schedule outpatient stress test. Vital Signs/Physical Exam: Temp Pulse Resp BP Pulse Ox 97.5 F 78 18 136/71 97 08/18/20 11:47 08/18/20 11:47 08/18/20 11:47 08/18/20 11:47 08/18/20 11:47 General: Alert, In no apparent distress HEENT: Mucous membr. moist/pink, Sclerae nonicteric Neck: No LAD Respiratory: Clear to auscultation bilaterally, Normal air movement Cardiovascular: No edema, Regular rate/rhythm, Normal S1 S2 Gastrointestinal: Normal bowel sounds, Soft and benign, Non-distended, No tenderness Musculoskeletal: No erythema, No tenderness Integumentary: No rashes Neurological: Normal speech, Normal affect Laboratory Data at Discharge: WBC 9.8 K/uL (4.3-10.9) D 08/18/20 05:07 Hgb 14.9 g/dL (12.0-15.0) 08/18/20 05:07 Hct 43.5 % (36.0-45.0) 08/18/20 05:07 Plt Count 220 K/uL (152-406) 08/18/20 05:07 PT 11.0 SECONDS (9.5-12.5) 08/17/20 03:45 INR 0.93 08/17/20 03:45 Sodium 142 mmol/L (136-145) 08/18/20 05:07 Potassium 3.8 mmol/L (3.5-5.1) 08/18/20 05:07 BUN 14 mg/dL (7-18) 08/18/20 05:07 Creatinine 0.81 mg/dL (0.55-1.3) 08/18/20 05:07 Glucose 93 mg/dL (74-106) 08/18/20 05:07 Phosphorus 4.0 mg/dL (2.5-4.9) 08/18/20 05:07 Magnesium 2.3 mg/dL (1.8-2.4) 08/18/20 05:07 Total Bilirubin 0.3 mg/dL (0.2-1.0) 08/17/20 03:45 AST 18 U/L (15-37) 08/17/20 03:45 ALT 20 U/L (12-78) 08/17/20 03:45 Alkaline Phosphatase 100 U/L (45-117) 08/17/20 03:45 Troponin I < 0.02 ng/mL (0.0-0.045) 08/17/20 08:04 Triglycerides 196 mg/dL (<150) H 08/17/20 03:45 Cholesterol 177 mg/dL (<200) 08/17/20 03:45 HDL Cholesterol 34 mg/dL (40-60) L 08/17/20 03:45 Cholesterol/HDL Ratio 5.21 08/17/20 03:45 Home Medications: Baclofen 1 tab PO BID 08/17/20 Duloxetine HCl 1 cap PO DAILY 08/17/20 Gabapentin 1 cap PO SEECOM 08/17/20 Hydrocodone/Acetaminophen [Hydrocodone-Acetamin 7.5-325] 1 tab PO BID 08/17/20 Meclizine HCl 1 tab PO DAILY 08/17/20 predniSONE [Deltasone*] 1 tab PO DAILY 08/17/20 Pantoprazole [Protonix Tab*] 40 mg PO BIDAC 30 Days #60 tab 08/18/20 New Medications: Pantoprazole [Protonix Tab*] 40 mg PO BIDAC 30 Days #60 tab Patient Discharge Instructions: Follow up with PCP within 3-5 days. Follow up with Dr. Mobley (GI clinic). Follow up with Dr. Calvillo (Cardiology) for outpatient stress test in the next few weeks. Medication changes: Protonix (pantoprazole) 40mg twice a day Diet: AHA Activity: Ad jerome Followup: Erik Mobley MD [ASSOCIATE-ACTIVE - CAN ADMIT] - (Call to make an appointment. ) Pierce Calvillo MD [OUTSIDE PHYSICIAN] - (Call to make an appointment. ) Time spent managing pt's care (in minutes): 35
[2020-08-18 18:47] VITALS: BP 146/67; TEMP 97
== END 2020-08-18 13:26 | disposition home or self-care (01) ==
LOC: ER 15:17 → ERHOLD 17:15 → 2ND 19:41
PROVIDERS: ADMIT Hospitalist; ATTEND Hospitalist
PROC: 0DB78ZX Excision of Stomach, Pylorus, Via Natural or Artificial Opening Endoscopic, Diagnostic (ICD-10-PCS; principal; 2020-08-17 13:30)
DX: R07.89 Other chest pain (principal); I10 Essential (primary) hypertension; K29.70 Gastritis, unspecified, without bleeding; K92.0 Hematemesis; M06.9 Rheumatoid arthritis, unspecified; M79.7 Fibromyalgia; Z20.828 Contact with and (suspected) exposure to other viral communicable diseases; Z87.891 Personal history of nicotine dependence; E66.9 Obesity, unspecified; Z68.38 Body mass index [BMI] 38.0-38.9, adult; K44.9 Diaphragmatic hernia without obstruction or gangrene; R04.2 Hemoptysis; G25.0 Essential tremor; Z79.52 Long term (current) use of systemic steroids
CPT/HCPCS: 43239; 93005; 85025 ×3; 80048 ×2; 36415 ×2; 83735 ×3; 88312; 84100; 85610 ×2; 80061; 85379; 80076; 88305; 84484 ×4; 80053; 83880; 71275; 71045; 94760 ×3; 96375; 96374; 99285; U0002; Q9967; J2704; J2270 ×5; G0378 ×5; J7030; J2405 ×3

== ENCOUNTER 2022-01-05 10:35 | Emergency (ER) | payer BC, OTHER ==
[2022-01-05] MEDS ORDERED: KETOROLAC 30 MG/ML INJ ONE (12:01)
--- NOTE | 2022-01-05 14:01 | RAD REPORT ---
EXAM DESCRIPTION: RAD - Chest Pa And Lat (2 Views) - 01/05/2022 1:55 pm CLINICAL HISTORY: BLUNT CHEST TRAUMA Chest pain. COMPARISON: Chest Single View dated 08/16/2020 FINDINGS: The lungs are clear. The heart is normal in size. No displaced fractures. IMPRESSION: No acute or concerning finding suspected.
--- NOTE | 2022-01-05 14:10 | ER ---
Nurse's Notes [facility] Name: Rebecca Sagastume Age: 51 yrs Sex: Female : 1970 Arrival Date: 01/05/2022 Time: 10:39 Bed 10 Private MD: Diagnosis: Contusion of left front wall of thorax Presentation: 01/05 10:53 Chief complaint: Patient states: "Wednesday I was moving a sink and I fell onto the sink ab2 and hit my chest and left breast. The pain is getting worse." Pt denies SOB or chest pain, but states she has pain with deep breathing. 10:53 Acuity: MER 4 ab2 10:53 Method Of Arrival: Ambulatory ab2 10:54 Coronavirus screen: Vaccine status: Patient reports receiving the 2nd dose of the covid ab2 vaccine. Client denies travel out of the [place] in the last 14 days. At this time, the client does not indicate any symptoms associated with coronavirus-19. Ebola Screen: Patient negative for fever greater than or equal to 101.5 degrees Fahrenheit, and additional compatible Ebola Virus Disease symptoms Patient denies exposure to infectious person. Patient denies travel to an Ebola-affected area in the 21 days before illness onset. No symptoms or risks identified at this time. Initial Sepsis Screen: Does the patient meet any 2 criteria? No. Patient's initial sepsis screen is negative. Does the patient have a suspected source of infection? No. Patient's initial sepsis screen is negative. Risk Assessment: Do you want to hurt yourself or someone else? Patient reports no desire to harm self or others. Onset of symptoms is unknown. Triage Assessment: 10:57 General: Appears in no apparent distress. uncomfortable, Behavior is calm, cooperative, ab2 appropriate for age. Pain: Complains of pain in xiphoid area, mid-sternal area and left breast. Historical: - Allergies: 10:56 Sulfa (Sulfonamide Antibiotics); ab2 - Home Meds: 10:56 Baclofen Oral [Active]; Coreg Oral [Active]; gabapentin Oral [Active]; Prednisone Oral ab2 [Active]; Propranolol Oral [Active]; Meclizine Oral [Active]; Hydrocodone-Acetaminophen Oral [Active]; - PMHx: 10:56 Fibromyalgia; Rheumatoid Arthritis; tremors; Hypertension; ab2 - Immunization history:: Adult Immunizations up to date. - Social history:: Smoking status: Patient reports the use of cigarette tobacco products, smokes one-half pack cigarettes per day. Screenin:51 Abuse screen: Denies threats or abuse. Denies injuries from another. Nutritional tobias screening: No deficits noted. Tuberculosis screening: No symptoms or risk factors identified. Fall Risk Assessment: 11:51 General: Appears in no apparent distress. Behavior is calm, cooperative. Pain: tobias Complains of pain in anterior aspect of left upper chest and left breast. Musculoskeletal: Tenderness present in anterior aspect of left upper chest and left breast Reports pain in anterior aspect of left upper chest, left nipple and left breast. Vital Signs: 10:54 BP 132 / 79; Pulse 64; Resp 19; Temp 97.7(TE); Pulse Ox 98% on R/A; Weight 122.47 kg; ab2 Height 5 ft. 11 in. (180.34 cm); Pain 9/10; 10:54 Body Mass Index 37.66 (122.47 kg, 180.34 cm) ab2 ED Course: 10:39 Patient arrived in ED. ds1 10:54 Triage completed. ab2 10:55 Daphnie Vogel FNP-C [facility]. kb 10:55 Rama Turpin MD is Attending Physician. kb 10:57 Arm band placed on left wrist. ab2 11:51 Patient has correct armband on for positive identification. tobias 11:51 No provider procedures requiring assistance completed. tobias 13:54 Chest Pa And Lat (2 Views) XRAY In Process Unspecified. EDMS 14:19 Hortencia Castellanos, CHARLES is Primary Nurse. ss 14:27 Patient did not have IV access during this emergency room visit. ss Administered Medications: 12:01 Drug: Ketorolac 30 mg Route: IM; Site: left gluteus; tobias 12:01 Follow up: Response: No adverse reaction tobias Outcome: 14:09 Discharge ordered by . kb 14:27 Discharged to home ambulatory. ss 14:27 Condition: good 14:27 Discharge instructions given to patient, family, Instructed on discharge instructions, follow up and referral plans. medication usage, Demonstrated understanding of instructions, follow-up care, Prescriptions given X 2. 14:29 Patient left the ED. ss Signatures: Dispatcher [employer] EDMS Daphnie Vogel, HAT CLEANER-C HAT CLEANER-Ckb Simran Arreola ds1 Hortencia Castellanos, CHARLES RN ss Mami Velásquez RN RN Yair Stone abRosalinda
--- NOTE | 2022-01-05 14:10 | EDPHYS ---
Physician Documentation [facility] Name: Rebecca Sagastume Age: 51 yrs Sex: Female : 1970 Arrival Date: 01/05/2022 Time: 10:39 Bed 10 Private MD: ED Physician Rama Turpin HPI: 01/05 14:07 This 51 yrs old Female presents to ER via Ambulatory with complaints of Fall kb Injury. 14:07 Details of fall: The patient fell from an upright position. Onset: The symptoms/episode kb began/occurred yesterday. Associated injuries: The patient sustained injury to the chest, pain with breathing, pain with movement, tenderness. Severity of symptoms: At their worst the symptoms were moderate, in the emergency department the symptoms are unchanged. The patient has not experienced similar symptoms in the past. The patient has not recently seen a physician. Pt states she was carrying a sink and fell, hitting her left chest on the sink. c/o pain to left chest. Worse with movement and deep breathing. Historical: - Allergies: 10:56 Sulfa (Sulfonamide Antibiotics); ab2 - Home Meds: 10:56 Baclofen Oral [Active]; Coreg Oral [Active]; gabapentin Oral [Active]; Prednisone Oral ab2 [Active]; Propranolol Oral [Active]; Meclizine Oral [Active]; Hydrocodone-Acetaminophen Oral [Active]; - PMHx: 10:56 Fibromyalgia; Rheumatoid Arthritis; tremors; Hypertension; ab2 - Immunization history:: Adult Immunizations up to date. - Social history:: Smoking status: Patient reports the use of cigarette tobacco products, smokes one-half pack cigarettes per day. ROS: 14:06 Constitutional: Negative for fever, chills, and weight loss. kb 14:06 Cardiovascular: Positive for chest pain, Negative for edema, orthopnea, palpitations, paroxysmal nocturnal dyspnea. 14:06 All other systems are negative. Exam: 14:07 Constitutional: This is a well developed, well nourished patient who is awake, alert, kb and in no acute distress. Head/Face: Normocephalic, atraumatic. Cardiovascular: Regular rate and rhythm with a normal S1 and S2. No gallops, murmurs, or rubs. No pulse deficits. Respiratory: Respirations even and unlabored. No increased work of breathing. Talking in full sentences Skin: Warm, dry with normal turgor. Normal color. MS/ Extremity: Pulses equal, no cyanosis. Neurovascular intact. Full, normal range of motion. Neuro: Awake and alert, GCS 15, oriented to person, place, time, and situation. Moves all extremities. Normal gait. Psych: Awake, alert, with orientation to person, place and time. Behavior, mood, and affect are within normal limits. 14:07 Chest/axilla: Inspection: normal, Palpation: tenderness, that is moderate, of the left breast, that totally reproduces the patient's complaints. Vital Signs: 10:54 BP 132 / 79; Pulse 64; Resp 19; Temp 97.7(TE); Pulse Ox 98% on R/A; Weight 122.47 kg; ab2 Height 5 ft. 11 in. (180.34 cm); Pain 9/10; 10:54 Body Mass Index 37.66 (122.47 kg, 180.34 cm) ab2 MDM: 11:31 Patient medically screened. kb 14:06 Data reviewed: vital signs, nurses notes. Data interpreted: Pulse oximetry: on room air kb is 98 %. Interpretation: normal. Counseling: I had a detailed discussion with the patient and/or guardian regarding: the historical points, exam findings, and any diagnostic results supporting the discharge/admit diagnosis, radiology results, the need for outpatient follow up, a family practitioner, to return to the emergency department if symptoms worsen or persist or if there are any questions or concerns that arise at home. 01/05 10:55 Order name: Chest Pa And Lat (2 Views) XRAY; Complete Time: 14:06 kb Administered Medications: 12:01 Drug: Ketorolac 30 mg Route: IM; Site: left gluteus; tobias 12:01 Follow up: Response: No adverse reaction tobias Disposition Summary: 01/05/22 14:09 Discharge Ordered Location: Home kb Condition: Stable kb Diagnosis - Contusion of left front wall of thorax kb Followup: kb - With: Emergency Department - When: As needed - Reason: Worsening of condition Followup: kb - With: Private Physician - When: 2 - 3 days - Reason: Recheck today's complaints, Continuance of care, Re-evaluation by your physician Discharge Instructions: - Discharge Summary Sheet kb - Contusion, [id number] kb Forms: - Medication Reconciliation Form kb - Thank You Letter kb - Antibiotic Education kb - Prescription Opioid Use kb Prescriptions: - Cyclobenzaprine 10 mg Oral Tablet - take 1 tablet by ORAL route every 8 hours As needed; 15 tablet; Refills: 0, kb Product Selection Permitted - Diclofenac Sodium 75 mg Oral tablet,delayed release (DR/EC) - take 1 tablet by ORAL route 2 times per day As needed; 30 tablet; Refills: 0, kb Product Selection Permitted Signatures: Dispatcher [employer] Daphnie Boyer, HOUSING PROPERTY MANAGER-C ZOYA-Mami Branham, RN RN Yair tSone
[2022-01-05 14:47] VITALS: BP 132/79; TEMP 97.7; O2SAT 98
== END 2022-01-05 14:29 | disposition home or self-care (01) ==
LOC: ER 10:35
DX: S20.212A Contusion of left front wall of thorax, initial encounter (principal); W19.XXXA Unspecified fall, initial encounter; F17.210 Nicotine dependence, cigarettes, uncomplicated; I10 Essential (primary) hypertension; Z88.2 Allergy status to sulfonamides
CPT/HCPCS: 71046; 96372; 99283

== ENCOUNTER 2024-01-07 08:37 | Inpatient (IN) | payer BC ==
[2024-01-07] MEDS ORDERED: CEFTRIAXONE 1000 MG/VIAL ONE (09:27)
[2024-01-07] MEDS ORDERED: ONDANSETRON 4 MG/2 ML VIAL ONE ×3 (09:27→15:20)
[2024-01-07] MEDS ORDERED: NA CHLORIDE 0.9% 1,000 ML ONE (09:27)
[2024-01-07 09:43] LABS: Absolute Basophils 0.1 K/uL (0-0.5); Absolute Lymphocytes (CBC) 2.3 K/uL (0.7-4.9); Basophils % 0.3 % (0-1.3); Eosinophils % 0.2 % (0-4.4); Hematocrit 42.6 % (36.0-45.0); Hemoglobin 15.2 g/dL (12.0-15.0); Lymphocytes % 13.2 % (15.3-44.8); MCV 89.4 fL (80-100); MPV 8.4 fL (7.6-11.3); Platelets 320 thou/uL (152-406); RBC Red Blood Cell Count 4.76 M/uL (3.86-4.86)
--- NOTE | 2024-01-07 09:52 | RAD REPORT ---
EXAM DESCRIPTION: RAD - Chest Single View - 01/07/2024 9:47 am CLINICAL HISTORY: COUGH Chest pain. COMPARISON: Chest Pa And Lat (2 Views) dated 01/05/2022; Chest Single View dated 08/16/2020 FINDINGS: Portable technique limits examination quality. Mild to moderate bilateral pulmonary opacities are present likely representing pulmonary infection garibay ch as a viral infection. Haziness in the right base could be developing pneumonia. . The heart is nor mal in size. No displaced fractures.
[2024-01-07 10:03] LABS: Albumin 3.1 g/dL (3.4-5.0); Albumin/Globulin Ratio 0.6 (1.1-1.8); Anion Gap 12.1 mEq/L (5.0-15.0); Bilirubin Direct 0.3 mg/dL (0-0.2); Bilirubin Indirect, Calculated 0.6 mg/dL (0.2-0.8); Bilirubin Total 0.9 mg/dL (0.2-1.0); Globulin 5.3 g/dL (2.3-3.5); Magnesium 2.1 mg/dL (1.6-2.4); Potassium 3.1 mEq/L (3.5-5.1); Protein, Total 8.4 g/dL (6.4-8.2); Troponin High Sensitivity 4.5 pg/mL (<58.9)
[2024-01-07 10:30] LABS: SARS-CoV-2 Antigen Rapid Res Negative (Negative)
[2024-01-07] MEDS ORDERED: ACETAMINOPHEN 500 MG TAB ONE (10:33)
[2024-01-07] MEDS ORDERED: KETOROLAC 30 MG/ML INJ ONE (10:33)
[2024-01-07] MEDS ORDERED: AZITHROMYCIN 500 MG INJ IVPB ONE (11:44)
[2024-01-07] MEDS ORDERED: NA CHLORIDE 0.9% 2,000 ML ONE (11:44)
[2024-01-07] MEDS ORDERED: NA CHLORIDE 0.9% 250 ML ONE (11:44)
--- NOTE | 2024-01-07 12:18 | RAD REPORT ---
EXAM DESCRIPTION: CT - Chest Abdomen Pelvis W Cont - 01/07/2024 12:06 pm CLINICAL HISTORY: Chest and abdomen pain. PAIN COMPARISON: Chest Single View dated 01/07/2024 TECHNIQUE: Approximately 100 mL nonionic IV contrast was administered to the patient. All CT scans are performed using dose optimization technique as appropriate and may include automated exposure control or mA/KV adjustment according to patient size. FINDINGS: Patchy opacities are present in both lungs, greatest in the right lower lobe posteriorly. This is probably related to infection/ pneumonia.No pleural or pericardial effusion.No intrathoracic adenopathy. The liver, spleen, pancreas, adrenal glands and kidneys are within normal limits. Cholecystectomy cli ps. No bowel obstruction, free air, free fluid or abscess. Normal appendix. No pathologic lymphadenopath y in the abdomen or pelvis. Mild lower lumbar degenerative changes. Small fat containing umbilical hernia. IMPRESSION: Patchy opacities are present in both lungs, greatest in the right lower lobe likely infe ction/pneumonia. No acute intra-abdominal or intrapelvic finding.
[2024-01-07] MEDS ORDERED: Levofloxacin500mg IV 500 MG/100 ML BAG IV ONE (12:46)
[2024-01-07] MEDS ORDERED: POTASSIUM 25 MEQ EFFERV TAB ONE (12:50)
--- NOTE | 2024-01-07 13:04 | ER ---
Nurse's Notes [facility] Name: Rebecca Sagastume Age: 53 yrs Sex: Female : 1970 Arrival Date: 01/07/2024 Time: 08:37 Bed 4 Private MD: Diagnosis: Vomiting;Fever, unspecified-IMMUMOSUPRESSED;Pneumonia due to other specified bacteria-BILATERAL ;Hypokalemia Presentation: 01/06 08:53 Chief complaint: N/V/D, headache, body aches, and fever x 2 weeks. TMAX 103. Actively hb vomiting in triage. Coronavirus screen: Client presents with at least one sign or symptom that may indicate coronavirus-19. Provider contacted for isolation considerations. Ebola Screen: No symptoms or risks identified at this time. Initial Sepsis Screen: Does the patient meet any 2 criteria? HR > 90 bpm. No. Patient's initial sepsis screen is negative. Does the patient have a suspected source of infection? No. Patient's initial sepsis screen is negative. Risk Assessment: Do you want to hurt yourself or someone else? Patient reports no desire to harm self or others. Onset of symptoms was December 24, 2023. 08:53 Method Of Arrival: Ambulatory hb 08:53 Acuity: MER 3 hb Triage Assessment: 08:57 General: Appears in no apparent distress. ill, Behavior is calm, cooperative. Pain: hb Pain currently is 7 out of 10 on a pain scale. Neuro: Level of Consciousness is awake, alert, obeys commands, Oriented to person, place, time, situation. Cardiovascular: Patient's skin is warm and dry. Respiratory: Respiratory effort is even, unlabored, Respiratory pattern is regular, symmetrical. GI: Reports diarrhea, nausea, vomiting. 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 - Social history:: Smoking status: Patient denies any tobacco usage or history of. - Family history:: not pertinent. Screenin:[facility] ED Fall Risk Assessment (Adult) History of falling in the last 3 months, ph including since admission No falls in past 3 months (0 pts) Confusion or Disorientation No (0 pts) Intoxicated or Sedated No (0 pts) Impaired Gait No (0 pts) Mobility Assist Device Used No (0 pt) Altered Elimination No (0 pt) Score/Fall Risk Level 0 - 2 = Low Risk Oriented to surroundings, Maintained a safe environment, Provided non-skid footwear, Hourly rounding (assess needs \T\ fall precautionary measures) done. Abuse screen: Denies threats or abuse. Denies injuries from another. Nutritional screening: No deficits noted. Tuberculosis screening: No symptoms or risk factors identified. Assessment: 09:35 General: Appears in no apparent distress. uncomfortable, Behavior is calm, cooperative, ph Reports chills for fever for > 3 days. Pain: Complains of pain in headache. Neuro: Level of Consciousness is awake, alert, obeys commands, Oriented to person, place, time, situation, Reports headache. Cardiovascular: Capillary refill < 3 seconds in bilateral fingers Patient's skin is warm and dry. Respiratory: Denies cough. Respiratory: Airway is patent Respiratory effort is even, unlabored. GI: Abdomen is non-distended, bloody discharge noted near umbilical region Reports diarrhea, nausea, vomiting, Patient currently denies abdominal pain. : No signs and/or symptoms were reported regarding the genitourinary system. Derm: Skin is normal. Musculoskeletal: Circulation, motion, and sensation intact. Range of motion: intact in all extremities. 11:00 Reassessment: Patient appears in no apparent distress at this time. Patient and/or ph family updated on plan of care and expected duration. Pain level reassessed. Patient is alert, oriented x 3, equal unlabored respirations, skin warm/dry/pink. Vital Signs: 08:53 BP 116 / 87; Pulse 119; Resp 20; Temp 99(TE); Pulse Ox 100% on R/A; Weight 113.4 kg; hb Height 5 ft. 11 in. ; Pain 7/10; 11:58 BP 120 / 58; Pulse 91; Resp 18; Pulse Ox 98% on R/A; ph 12:44 BP 125 / 63; Pulse 83; Resp 18; Pulse Ox 99% on R/A; mb9 08:53 Body Mass Index 34.87 (113.40 kg, 180.34 cm) hb 08:53 Pain Scale: Adult hb ED Course: 08:38 Patient arrived in ED. rg4 08:42 Keron Saldaañ MD is Attending Physician. jennifer 08:55 Triage completed. hb 08:57 Arm band placed on. hb 09:12 Luna Weldon, RN is Primary Nurse. ph 09:15 Patient has correct armband on for positive identification. Bed in low position. Call ph light in reach. Side rails up X 1. Client placed on continuous cardiac and pulse oximetry monitoring. NIBP monitoring applied. 09:15 athletic monitor on. Pulse ox on. NIBP on. hb 09:15 First set of blood cultures drawn by me. zm 09:30 Second set of blood cultures drawn by me. zm 09:31 Inserted saline lock: 18 gauge in right forearm, using aseptic technique. Blood zm collected. 09:31 Initial lab(s) drawn, by me, sent to lab. zm 09:32 Blood Culture Adult (2) Sent. zm 09:32 Lactate w/ 2H reflex if indic. Sent. zm 09:32 Basic Metabolic Panel Sent. zm 09:32 CBC with Diff Sent. zm 09:32 LFT's Sent. zm 09:32 Magnesium Sent. zm 09:32 NT PRO-BNP Sent. zm 09:32 Troponin HS Sent. zm 09:49 XRAY Chest (1 view) In Process Unspecified. EDMS 12:08 CT Chest, Abdomen, Pelvis - W/Contrast In Process Unspecified. EDMS 12:11 Patient moved back from CT. mb9 13:02 Serafin Lepe is Hospitalizing Provider. jennifer Administered Medications: 09:02 CANCELLED (Duplicate Order): [id number] mg PO once jennifer 09:04 CANCELLED (Duplicate Order): Ondansetron Oral Disintegrating Tablet 4 mg PO once jennifer 09:35 Drug: NS 0.9% IV 1000 ml IV at 1 bolus Per protocol; 1000 mL bolus Route: IV; Rate: 1 ph bolus; Site: right forearm; 11:41 Follow up: Response: No adverse reaction; IV Status: Completed infusion mb9 09:35 Drug: Ondansetron IVP 4 mg IVP once; over 2 minutes Route: IVP; Site: right forearm; ph 12:55 Follow up: Response: No adverse reaction ph 09:35 Drug: Rocephin IV 1 grams IV at per protocol once; Given slow IV push per pharmacy ph instructions Route: IV; Rate: per protocol; Site: right forearm; 11:40 Follow up: Response: No adverse reaction; IV Status: Completed infusion mb9 10:46 Drug: Ketorolac IVP 15 mg IVP once Route: IVP; Site: right forearm; ph 12:55 Follow up: Response: No adverse reaction ph 10:46 Drug: Acetaminophen PO 1000 mg PO once Route: PO; ph 12:55 Follow up: Response: No adverse reaction ph 11:57 Drug: NS 0.9% IV 1000 ml IV at 1 bolus Per protocol; 1000 mL bolus Route: IV; Rate: 1 ph bolus; Site: right forearm; 11:57 Drug: Zithromax IVPB 500 mg IVPB once over 1 hrs; mix in 250 mL NS Route: IVPB; Infused ph Over: 1 hrs; Site: right forearm; 13:00 Follow up: Response: No adverse reaction; IV Status: Completed infusion mb9 11:57 Drug: NS 0.9% IV 1000 ml IV at 125 ml/hr continuous Route: IV; Rate: 125 ml/hr; Site: ph right forearm; 11:58 Drug: Ondansetron IVP 4 mg IVP once; over 2 minutes Route: IVP; Site: right forearm; ph 12:56 Follow up: Response: No adverse reaction ph 12:54 Drug: Potassium PO Effervescent Tablet 50 mEq PO once; dissolve in 4 ounces of water or mb9 juice Route: PO; 12:56 Follow up: Response: No adverse reaction ph 13:00 Drug: levofloxacin IVPB 500 mg 100 ml IVPB once over 60 mins Volume: 100 ml; Route: ph IVPB; Infused Over: 60 mins; Site: right forearm; Medication: 09:15 VIS not applicable for this client. ph Outcome: 13:03 Decision to Hospitalize by Provider. jennifer 16:54 Patient left the ED. mb9 Signatures: Dispatcher [employer] EDKeron Domínguez MD MD cha Hall, Patricia, RN RN ph Mami Main RN RN Sudha Reed rg4 Georgina Meza, Michell Wiggins RN RN mb9 Corrections: (The following items were deleted from the chart) 10:10 09:35 NS 0.9% IV 1000 ml IV at 1 bolus in right hand ph ph
--- NOTE | 2024-01-07 13:04 | EDPHYS ---
Physician Documentation [facility] Name: Rebecca Sagastume Age: 53 yrs Sex: Female : 1970 Arrival Date: 01/07/2024 Time: 08:37 Bed 4 Private MD: ED Physician Keron Saldaña HPI: 01/06 12:54 This 53 yrs old Female presents to ER via Ambulatory with complaints of jennifer Nausea/Vomiting/Diarrhea, Fever. 12:54 The patient presents to the emergency department with nausea, vomiting, diarrhea, that jennifer is intermittent. 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 - Social history:: Smoking status: Patient denies any tobacco usage or history of. - Family history:: not pertinent. ROS: 12:55 Eyes: Negative for injury, pain, redness, and discharge, ENT: Negative for injury, jennifer pain, and discharge, Neck: Negative for injury, pain, and swelling, Back: Negative for injury and pain, : Negative for injury, bleeding, discharge, and swelling, MS/Extremity: Negative for injury and deformity, Skin: Negative for injury, rash, and discoloration, Neuro: Negative for headache, weakness, numbness, tingling, and seizure, Psych: Negative for depression, anxiety, suicide ideation, homicidal ideation, and hallucinations, Allergy/Immunology: Negative for hives, rash, and allergies, Endocrine: Negative for neck swelling, polydipsia, polyuria, polyphagia, and marked weight changes, Hematologic/Lymphatic: Negative for swollen nodes, abnormal bleeding, and unusual bruising, 12:55 Constitutional: Positive for fever, 12:55 Cardiovascular: Positive for palpitations, 12:55 Respiratory: Positive for cough, shortness of breath, at rest. 12:55 Abdomen/GI: Positive for nausea and vomiting, diarrhea, Exam: 12:55 Constitutional: This is a well developed, well nourished patient who is awake, alert, jennifer and in no acute distress. Head/Face: Normocephalic, atraumatic. Eyes: Pupils equal round and reactive to light, extra-ocular motions intact. Lids and lashes normal. Conjunctiva and sclera are non-icteric and not injected. Cornea within normal limits. Periorbital areas with no swelling, redness, or edema. ENT: Nares patent. No nasal discharge, no septal abnormalities noted. Tympanic membranes are normal and external auditory canals are clear. Oropharynx with no redness, swelling, or masses, exudates, or evidence of obstruction, uvula midline. Mucous membranes moist. Neck: Trachea midline, no thyromegaly or masses palpated, and no cervical lymphadenopathy. Supple, full range of motion without nuchal rigidity, or vertebral point tenderness. No Meningismus. Chest/axilla: Normal chest wall appearance and motion. Nontender with no deformity. No lesions are appreciated. Cardiovascular: Regular rate and rhythm with a normal S1 and S2. No gallops, murmurs, or rubs. Normal PMI, no JVD. No pulse deficits. Respiratory: Lungs have equal breath sounds bilaterally, clear to auscultation and percussion. No rales, rhonchi or wheezes noted. No increased work of breathing, no retractions or nasal flaring. Back: No spinal tenderness. No costovertebral tenderness. Full range of motion. Female : Normal external genitalia. Skin: Warm, dry with normal turgor. Normal color with no rashes, no lesions, and no evidence of cellulitis. MS/ Extremity: Pulses equal, no cyanosis. Neurovascular intact. Full, normal range of motion. Neuro: Awake and alert, GCS 15, oriented to person, place, time, and situation. Cranial nerves II-XII grossly intact. Motor strength 5/5 in all extremities. Sensory grossly intact. Cerebellar exam normal. Normal gait. Psych: Awake, alert, with orientation to person, place and time. Behavior, mood, and affect are within normal limits. 12:55 ECG was reviewed by the Attending Physician. 12:55 Abdomen/GI: Inspection: abdomen appears normal, Bowel sounds: normal, Palpation: soft, Liver: no appreciated palpable abnormalities, Hernia: not appreciated, Vital Signs: 08:53 BP 116 / 87; Pulse 119; Resp 20; Temp 99(TE); Pulse Ox 100% on R/A; Weight 113.4 kg; hb Height 5 ft. 11 in. ; Pain 7/10; 11:58 BP 120 / 58; Pulse 91; Resp 18; Pulse Ox 98% on R/A; ph 12:44 BP 125 / 63; Pulse 83; Resp 18; Pulse Ox 99% on R/A; mb9 08:53 Body Mass Index 34.87 (113.40 kg, 180.34 cm) hb 08:53 Pain Scale: Adult hb MDM: 09:07 Patient medically screened. jennifer 12:58 Antibiotic administration: Levaquin given, Rocephin and Zithromax given. Differential jennifer diagnosis: Nonspecific abd pain, gastritis, cholecystitis, pancreatitis, appendicitis, viral gastroenteritis, gastroenteritis, viral Infection, bacterial infection, URI, bronchitis, pneumonia UTI. Differential Diagnosis: Obstructed Airway Bronchitis Influenza Upper Respiratory Infection Sinusitis Asthma Exacerbation Viral Syndrome Pneumonia. Immunization status: Influenza vaccine: within last 5 years. Data reviewed: vital signs, nurses notes, EMS record, lab test result(s), EKG, radiologic studies, CT scan, plain films. Consideration of Admission/Observation Patient was admitted/placed on observation. Escalation of care including admission/observation considered. I considered the following discharge prescriptions or medication management in the emergency department Medications were administered in the Emergency Department. See MAR. Test considered but Not performed: Ultrasound NO ABD USG. 01/06 08:43 Order name: Flu; Complete Time: 11:38 [facility] 01/06 08:43 Order name: SARS RAPID; Complete Time: 11:38 [facility] 01/06 08:43 Order name: Strep [facility] 01/06 09:04 Order name: Basic Metabolic Panel; Complete Time: 11:38 [facility] 01/06 09:04 Order name: CBC with Diff; Complete Time: 11:38 [facility] 01/06 09:04 Order name: LFT's; Complete Time: 11:38 [facility] 01/06 09:04 Order name: Magnesium; Complete Time: 11:38 [facility] 01/06 09:04 Order name: NT PRO-BNP; Complete Time: 11:38 [facility] 01/06 09:04 Order name: Troponin HS; Complete Time: 11:38 [facility] 01/06 09:04 Order name: Blood Culture Adult (2) [facility] 01/06 09:04 Order name: Lactate w/ 2H reflex if indic.; Complete Time: 11:38 [facility] 01/06 09:04 Order name: Urinalysis w/ reflexes [facility] 01/06 10:30 Order name: Throat Culture EDMS 01/06 14:05 Order name: Basic Metabolic Panel EDMS 01/06 14:05 Order name: Basic Metabolic Panel EDMS 01/06 14:05 Order name: Basic Metabolic Panel EDMS 01/06 14:05 Order name: Basic Metabolic Panel EDMS 01/06 14:05 Order name: Basic Metabolic Panel EDMS 01/06 14:05 Order name: Basic Metabolic Panel EDMS 01/06 14:05 Order name: CBC with Automated Diff EDMS 01/06 14:05 Order name: CBC with Automated Diff EDMS 01/06 14:05 Order name: CBC with Automated Diff EDMS 01/06 14:05 Order name: CBC with Automated Diff EDMS 01/06 14:05 Order name: CBC with Automated Diff EDMS 01/06 14:05 Order name: CBC with Automated Diff EDMS 01/06 14:05 Order name: Magnesium EDMS 01/06 14:05 Order name: Magnesium EDMS 01/06 14:05 Order name: Magnesium EDMS 01/06 14:05 Order name: Magnesium EDMS 01/06 14:05 Order name: Magnesium EDMS 01/06 14:05 Order name: Magnesium EDMS 01/06 14:05 Order name: Phosphorus EDMS 01/06 14:05 Order name: Phosphorus EDMS 01/06 14:05 Order name: Phosphorus EDMS 01/06 14:05 Order name: Phosphorus EDMS 01/06 14:05 Order name: Phosphorus EDMS 01/06 14:05 Order name: Phosphorus EDMS 01/06 09:04 Order name: XRAY Chest (1 view); Complete Time: 11:38 [facility] 01/06 11:53 Order name: CT Chest, Abdomen, Pelvis - W/Contrast; Complete Time: 12:43 [facility] 01/06 09:04 Order name: EKG; Complete Time: 09:06 [facility] 01/06 09:04 Order name: Cardiac monitoring; Complete Time: 09:12 [facility] 01/06 09:04 Order name: EKG - Nurse/Tech; Complete Time: 10:51 [facility] 01/06 09:04 Order name: IV Saline Lock; Complete Time: 09:32 [facility] 01/06 09:04 Order name: Labs collected and sent; Complete Time: :32 [facility] 01/06 09:04 Order name: O2 Per Protocol; Complete Time: 09:12 [facility] 01/06 09:04 Order name: O2 Sat Monitoring; Complete Time: 09:12 [facility] 01/06 10:21 Order name: Labs - recollect needed: recollect swabs/ sewing pattern layout technician put wrong agent into eb specimen; Complete Time: 10:45 EC:55 Rate is 83 beats/min. Rhythm is regular. QRS [place] is Normal. DC interval is normal. QRS jennifer interval is normal. QT interval is normal. No Q waves. T waves are Normal. No ST changes noted. Clinical impression: Normal ECG and No evidence of ischemia. Interpreted by me. Reviewed by me. Administered Medications: 09:02 CANCELLED (Duplicate Order): [id number] mg PO once [facility] 09:04 CANCELLED (Duplicate Order): Ondansetron Oral Disintegrating Tablet 4 mg PO once jennifer 09:35 Drug: NS 0.9% IV 1000 ml IV at 1 bolus Per protocol; 1000 mL bolus Route: IV; Rate: 1 ph bolus; Site: right forearm; 11:41 Follow up: Response: No adverse reaction; IV Status: Completed infusion mb9 09:35 Drug: Ondansetron IVP 4 mg IVP once; over 2 minutes Route: IVP; Site: right forearm; ph 12:55 Follow up: Response: No adverse reaction ph 09:35 Drug: Rocephin IV 1 grams IV at per protocol once; Given slow IV push per pharmacy ph instructions Route: IV; Rate: per protocol; Site: right forearm; 11:40 Follow up: Response: No adverse reaction; IV Status: Completed infusion mb9 10:46 Drug: Ketorolac IVP 15 mg IVP once Route: IVP; Site: right forearm; ph 12:55 Follow up: Response: No adverse reaction ph 10:46 Drug: Acetaminophen PO 1000 mg PO once Route: PO; ph 12:55 Follow up: Response: No adverse reaction ph 11:57 Drug: NS 0.9% IV 1000 ml IV at 1 bolus Per protocol; 1000 mL bolus Route: IV; Rate: 1 ph bolus; Site: right forearm; 11:57 Drug: Zithromax IVPB 500 mg IVPB once over 1 hrs; mix in 250 mL NS Route: IVPB; Infused ph Over: 1 hrs; Site: right forearm; 13:00 Follow up: Response: No adverse reaction; IV Status: Completed infusion mb9 11:57 Drug: NS 0.9% IV 1000 ml IV at 125 ml/hr continuous Route: IV; Rate: 125 ml/hr; Site: ph right forearm; 11:58 Drug: Ondansetron IVP 4 mg IVP once; over 2 minutes Route: IVP; Site: right forearm; ph 12:56 Follow up: Response: No adverse reaction ph 12:54 Drug: Potassium PO Effervescent Tablet 50 mEq PO once; dissolve in 4 ounces of water or mb9 juice Route: PO; 12:56 Follow up: Response: No adverse reaction ph 13:00 Drug: levofloxacin IVPB 500 mg 100 ml IVPB once over 60 mins Volume: 100 ml; Route: ph IVPB; Infused Over: 60 mins; Site: right forearm; Disposition Summary: 01/07/24 13:03 Hospitalization Ordered Notes: Hospitalization Status: Inpatient Admission jennifer Provider: Serafin Lepe cha Condition: Fair jennifer Problem: new jennifer Symptoms: have improved jennifer Bed/Room Type: Standard jennifer Location: Telemetry/MedSurg (Inpatient)(01/07/24 15:54) eb Room Assignment: [facility](01/07/24 15:54) eb Diagnosis - Vomiting jennifer - Fever, unspecified - IMMUMOSUPRESSED jennifer - Pneumonia due to other specified bacteria - BILATERAL jennifer - Hypokalemia jennifer Forms: - Medication Reconciliation Form jennifer - SBAR form jennifer - Leadership Thank You Letter jennifer Signatures: Dispatcher [employer] EDKeron Domínguez MD MD cha Hall, Patricia RN RN ph Mami Main RN RN Radha Becerril Kelly RN RN kb3 Michell Simmons RN RN mb9 Corrections: (The following items were deleted from the chart) 09:02 08:43 AZITHromycin PO 500 mg PO once ordered. jennifer jennifer 09:04 09:04 Ondansetron Oral Disintegrating Tablet Oral Disintegrating Tablet 4 mg PO once jennifer ordered. jennifer 09:12 08:43 Chest Pa And Lat (2 Views)+[email or web address] ordered. EDMS EDMS 14:55 13:03 Telemetry/MedSurg (Inpatient) jennifer kb3 14:55 13:03 jennifer kb3 15:54 14:55 BR ER HOLD kb3 eb 15:54 14:55 ERHOLD- kb3 eb
--- NOTE | 2024-01-07 13:30 | P.HP ---
Certification for Inpatient Patient admitted to: Inpatient With expected LOS: >2 Midnights Patient will require the following post-hospital care: None Practitioner: I am a practitioner with admitting privileges, knowledge of patient current condition, hospital course, and medical plan of care. Services: Services provided to patient in accordance with Admission requirements found in Title 42 Section 412.3 of the Code of Federal Regulations Patient History Date of Service: 01/07/24 Reason for admission: Bilateral PNA History of Present Illness: Rebecca Sagastume is a 53-year-old female with past medical history of Fibromyalgia, Hypertension, Rheumatoid Arthritis, and tremors who presents to the ED with chief complaint of nausea, vomiting, headache, and fever for 3 weeks. She reports coming back to [place] after traveling but not being exposed to anyone sick. She did not leave the country. On examination, lung sounds with rhonchi, in NAD, on RA, and hemodynamically stable. While in the ED, potassium was replaced, normal saline was given, Levaquin Rocephin and Zithromax were started. Initial vital BP 116 / 87; Pulse 119; Resp 20; Temp 99(TE); Pulse Ox 100% on R/A Laboratory evaluation shows leukocytosis with white count of 17.5, hypokalemia with potassium 3.1, hyperglycemia serum glucose 126. Chest x-ray reports "Mild to moderate bilateral pulmonary opacities are present likely representing pulmonary infection such as a viral infection. Haziness in the right base could be developing pneumonia. The heart is normal in size. No displaced fractures." CT abdomen pelvis reports "Patchy opacities are present in both lungs, greatest in the right lower lobe likely infection/pneumonia. No acute intra-abdominal or intrapelvic finding." Rebecca will be admitted to hospitalist service for further evaluation and treatment of bilateral pneumonia. Allergies Sulfa (Sulfonamide Antibiotics) Allergy (Verified 08/16/20 21:56) Rash hydromorphone [From Dilaudid] Adverse Reaction (Intermediate, Verified 01/07/24 17:38) Anaphylaxis Home Medications: Baclofen 1 tab PO BID 08/17/20 Duloxetine HCl 1 cap PO DAILY 08/17/20 Gabapentin 1 cap PO SEECOM 08/17/20 Hydrocodone/Acetaminophen [Hydrocodone-Acetamin 7.5-325] 1 tab PO BID 08/17/20 Meclizine HCl 1 tab PO DAILY 08/17/20 predniSONE [Deltasone*] 1 tab PO DAILY 08/17/20 Pantoprazole [Protonix Tab*] 40 mg PO BIDAC 30 Days #60 tab 08/18/20 - Past Medical/Surgical History Diabetic: No -: HTN -: RA -: Fibromyalgia -: Discectomy 2016(bulging and herniated disc L2 L3 L5) -: HYSTRECTOMY 2012 -: cholecystectomy 2011 - Family History Father -: Heart disease Sister -: GI disease (Ulcers) - Social History Alcohol use: No CD- Drugs: No Caffeine use: Yes Review of Systems General: Fever Respiratory: Other (chest burning) Gastrointestinal: Nausea, Vomiting, Diarrhea Physical Examination - Physical Exam General: Alert, In no apparent distress, Oriented x3 HEENT: Atraumatic, Normocephalic, PERRLA Neck: Supple, 2+ carotid pulse no bruit, JVD not distended Respiratory: Normal air movement, Rhonchi/gurgles Cardiovascular: No edema, Normal pulses, Regular rate/rhythm, Normal S1 S2 Capillary refill: <2 Seconds Gastrointestinal: Normal bowel sounds, Soft and benign Musculoskeletal: No contractures, No erythema Integumentary: No breakdown Neurological: Normal speech, Normal strength at 5/5 x4 extr - Studies Laboratory Data (last 24 hrs) 01/07/24 01/07/24 09:30 09:30 WBC 17.50 H Hgb 15.2 H Hct 42.6 Plt Count 320 Sodium 140 Potassium 3.1 L BUN 20 H Creatinine 0.75 Glucose 126 H Magnesium 2.1 Total Bilirubin 0.9 AST 26 ALT 34 Alkaline Phosphatase 117 Microbiology Data (last 24 hrs): 01/07/24 10:44 Nasopharnyx Influenza Type A Antigen Screen - Final 01/07/24 10:44 Nasopharnyx Influenza Type B Antigen Screen - Final 01/07/24 10:06 Throat Group A Streptococcus Rapid Screen - Final Assessment and Plan - Plan Assessment and plan Acute hypoxic respiratory distress secondary to bilateral pneumonia Leukocytosis Febrile -CT abdomen pelvis reports "Patchy opacities are present in both lungs, greatest in the right lower lobe likely infection/pneumonia. No acute intra-abdominal or intrapelvic finding." -Chest x-ray reports "Mild to moderate bilateral pulmonary opacities are present likely representing pulmonary infection such as a viral infection. Haziness in the right base could be developing pneumonia. The heart is normal in size. No displaced fractures." -Tylenol as needed -Pain medication -2 LNC O2 PRN -IV antibiotics -Follow blood cultures -Flu and strep negative Hypokalemia -potassium 3.1 -Replace and monitor as needed History of fibromyalgia/rheumatoid arthritis/tremors History of hypertension -Restart home medications when available -Supportive care -Blood pressure stable DVT PPx Lovenox Full code LOS 2 to 3 days Discharge Plan: Home Plan to discharge in: 48 Hours - Advance Directives Does patient have a Living Will: No Does patient have a Durable POA for Healthcare: No Time Spent Managing Pts Care (In Minutes): 50
[2024-01-07 14:32] LABS: Urine Bacteria <20 /HPF (<20); Urine Bilirubin NEGATIVE (Negative); Urine Blood Trace (Negative); Urine Clarity Clear (Clear); Urine Color Yellow (Yellow); Urine Glucose NEGATIVE (Negative); Urine Mucus Slight /HPF (None Seen); Urine Protein 1+ (Negative); Urine RBC <5 /HPF (None Seen); Urine Urobilinogen Normal (Normal); Urine pH 6.5 (5.0-7.0)
[2024-01-07 14:34] LABS: Specific Gravity > 1.030 (1.005-1.030)
[2024-01-07] MEDS: ENOXAPARIN 40 MG/0.4 ML SQ SCH (15:00)
[2024-01-07 16:36] VITALS: BMI 34.8
[2024-01-07] MEDS: ACETAMINOPHEN 500 MG TAB PO PRN (18:25)
[2024-01-07] MEDS: NA CHLORIDE 0.9% 1,000 ML IV SCH (18:31)
[2024-01-07] MEDS ORDERED: PNEUMOCOCCAL VACCINE 0.5 ML IMVAC ONE (20:00)
[2024-01-07] MEDS: ONDANSETRON 4 MG/2 ML VIAL IV PRN (20:30)
[2024-01-07] MEDS: BACLOFEN 10 MG TAB PO SCH (21:36)
[2024-01-08] MEDS: MELATONIN 5 MG TABLET PO PRN (00:19)
[2024-01-08 04:51] LABS: Absolute Lymphocytes (CBC) 2.5 K/uL (0.7-4.9); Basophils % 0.2 % (0-1.3); Eosinophils % 0.3 % (0-4.4); Hematocrit 35.4 % (36.0-45.0); Hemoglobin 12.6 g/dL (12.0-15.0); Lymphocytes % 24.3 % (15.3-44.8); MCV 90.7 fL (80-100); MPV 8.3 fL (7.6-11.3); Platelets 292 thou/uL (152-406)
[2024-01-08] MEDS: PROMETHAZINE INJ 25 MG/ML AMP IV ONE (04:58)
[2024-01-08 05:24] LABS: Anion Gap 8.3 mEq/L (5.0-15.0); Phosphorus 2.9 mg/dL (2.5-4.9); Potassium 3.3 mEq/L (3.5-5.1)
[2024-01-08] MEDS: POTASSIUM 25 MEQ EFFERV TAB PO ONE (06:45)
[2024-01-08 08:16] LABS: Blood Morphology Comment NOT SEEN (NOT SEEN); Platelet Estimate ADEQ; White Blood Cell Scan OK (OK)
[2024-01-08] MEDS: GABAPENTIN 300 MG CAP PO SCH (08:51)
[2024-01-08] MEDS: carvediloL 12.5 MG TAB PO SCH (08:51)
[2024-01-08] MEDS: PANTOPRAZOLE 40MG TABLET PO SCH (08:51)
[2024-01-08] MEDS: DULOXETINE 30 MG CAP PO SCH (08:52)
[2024-01-08] MEDS: predniSONE 10 MG TAB PO SCH (08:52)
[2024-01-08] MEDS: LEFLUNOMIDE 20 MG PO SCH (08:53)
[2024-01-08] MEDS: CEFEPIME 2 GM in NA CHLORIDE 0.9% 100 ML IV SCH (08:59)
[2024-01-08] MEDS: guaiFENesin 100 MG/5 ML UCUP PO PRN (08:59)
[2024-01-08] MEDS: HYDROXYCHLOROQUINE 200MG TAB PO SCH (08:59)
[2024-01-08] MEDS ORDERED: PNEUMOCOCCAL VACCINE 0.5 ML IMVAC ONE (10:00)
[2024-01-08] MEDS: Levofloxacin 750mg IV 750 MG/150 ML BAG IV SCH (11:51)
--- NOTE | 2024-01-08 12:29 | P.PN ---
Date of Service: 01/08/24 Subjective She reports feeling much better, a smile on her face this morning Ambulating independently, tolerating p.o. diet, on room air Denies chest pain and shortness of breath, does report chest burning from coughing ROS 10 point ROS as noted above, otherwise negative Physical Exam General: AAOx3, NAD HEENT: Atraumatic, Normocephalic, PERRLA Neck: Supple, 2+ carotid pulse no bruit, JVD not distended Respiratory: Normal air movement, Rhonchi/gurgles Cardiovascular: No edema, Normal pulses, RRR, S1 S2 present, no murmur noted Capillary refill: <2 Seconds Gastrointestinal: Normal bowel sounds, Soft and benign Musculoskeletal: No contractures, No erythema Integumentary: No breakdown Neurological: Normal speech, Normal strength at 5/5 x4 extr Vitals Reviewed Problem list Acute hypoxic respiratory distress secondary to bilateral pneumonia Leukocytosis Febrile Hypokalemia History of fibromyalgia/rheumatoid arthritis/tremors History of hypertension Cough Assessment and plan Acute hypoxic respiratory distress secondary to bilateral pneumonia Leukocytosis Febrile Cough -CT abdomen pelvis reports "Patchy opacities are present in both lungs, greatest in the right lower lobe likely infection/pneumonia. No acute intra-abdominal or intrapelvic finding." -Chest x-ray reports "Mild to moderate bilateral pulmonary opacities are present likely representing pulmonary infection such as a viral infection. Haziness in the right base could be developing pneumonia. The heart is normal in size. No displaced fractures." -Tylenol as needed -Pain medication -2 LNC O2 PRN -Cefepime and levaquin -zofran -Follow blood cultures- NGTD -Flu and strep negative -Incentive spirometer -Robitussin Hypokalemia -potassium 3.3- improved -Replace and monitor as needed History of fibromyalgia/rheumatoid arthritis/tremors History of hypertension - home medications -Supportive care -Blood pressure stable DVT PPx Lovenox Full code LOS 2 to 3 days5
[2024-01-08] MEDS: POTASSIUM CL SA 10 MEQ TAB PO ONE (15:38)
[2024-01-08] MEDS: ALBUTEROL 2.5 MG/3 ML NEB SOL NEB PRN (20:43)
[2024-01-09 04:34] LABS: Absolute Eosinophils 0.1 K/uL (0-0.5); Basophils % 0.4 % (0-1.3); Eosinophils % 0.4 % (0-4.4); Hematocrit 35.2 % (36.0-45.0); Hemoglobin 12.3 g/dL (12.0-15.0); Lymphocytes % 24.7 % (15.3-44.8); MCV 92.2 fL (80-100); MPV 8.4 fL (7.6-11.3); Platelets 322 thou/uL (152-406); RBC Red Blood Cell Count 3.82 M/uL (3.86-4.86)
[2024-01-09 04:47] LABS: Anion Gap 9.5 mEq/L (5.0-15.0); Magnesium 2.1 mg/dL (1.6-2.4); Phosphorus 3.2 mg/dL (2.5-4.9); Potassium 3.5 mEq/L (3.5-5.1)
[2024-01-09] MEDS: POTASSIUM CL SA 10 MEQ TAB PO ONE (05:16)
--- NOTE | 2024-01-09 07:48 | P.PN ---
Date of Service: 01/09/24 Subjective Feeling well this morning, still with nausea requiring Zofran regularly. Afebrile ROS 10 point ROS as noted above, otherwise negative Physical Exam General: Alert and oriented x3, NAD HEENT: Atraumatic, Normocephalic, PERRLA Neck: Supple, 2+ carotid pulse no bruit, JVD not distended Respiratory: Normal air movement, bilaterally clear breath sounds Cardiovascular: No edema, Normal pulses, RRR, S1 S2 present, no murmur noted Capillary refill: <2 Seconds Gastrointestinal: Normal bowel sounds, Soft and benign on palpation Musculoskeletal: No contractures, No erythema Integumentary: No breakdown Neurological: Normal speech, Normal strength at 5/5 x4 extr Vitals Reviewed Problem list Acute hypoxic respiratory distress secondary to bilateral pneumonia Leukocytosis Febrile Hypokalemia History of fibromyalgia/rheumatoid arthritis/tremors History of hypertension Cough Assessment and plan Acute hypoxic respiratory distress secondary to bilateral pneumonia Leukocytosis Febrile Cough -CT abdomen pelvis reports "Patchy opacities are present in both lungs, greatest in the right lower lobe likely infection/pneumonia. No acute intra-abdominal or intrapelvic finding." -Chest x-ray reports "Mild to moderate bilateral pulmonary opacities are present likely representing pulmonary infection such as a viral infection. Haziness in the right base could be developing pneumonia. The heart is normal in size. No displaced fractures." -Tylenol as needed -Pain medication -2 LNC O2 PRN -Cefepime and levaquin -zofran -Follow blood cultures- NGTD -Flu and strep negative -Incentive spirometer -Robitussin -Zofran not controlling nausea, phenergan started Hypokalemia -potassium 3.3- improved 01/07 -Replace and monitor as needed History of fibromyalgia/rheumatoid arthritis/tremors History of hypertension - home medications -Supportive care -Blood pressure stable DVT PPx Lovenox Full code LOS 2 to 3 days5
[2024-01-09] MEDS: D5 0.45 NS 1,000 ML IV SCH (08:24)
[2024-01-09] MEDS: PROMETHAZINE INJ 25 MG/ML AMP IV PRN (10:31)
[2024-01-09] MEDS ORDERED: MAGNES/ALUMIN/SIMET 30ML UCUP PO PRN (13:00)
[2024-01-10 00:34] VITALS: O2SAT 95
[2024-01-10 06:49] LABS: Absolute Eosinophils 0.1 K/uL (0-0.5); Absolute Lymphocytes (CBC) 3.3 K/uL (0.7-4.9); Basophils % 0.4 % (0-1.3); Hematocrit 35.3 % (36.0-45.0); Hemoglobin 12.5 g/dL (12.0-15.0); Lymphocytes % 30.1 % (15.3-44.8); MCV 91.6 fL (80-100); MPV 8.1 fL (7.6-11.3); Platelets 349 thou/uL (152-406); RBC Red Blood Cell Count 3.85 M/uL (3.86-4.86)
[2024-01-10 07:08] LABS: Anion Gap 8.1 mEq/L (5.0-15.0); Phosphorus 3.8 mg/dL (2.5-4.9); Potassium 3.1 mEq/L (3.5-5.1)
[2024-01-10] MEDS: POTASSIUM CL SA 10 MEQ TAB PO ONE (08:27)
[2024-01-10] MEDS: DOXYCYCLINE 100 MG CAP PO SCH (08:39)
[2024-01-10] MEDS: CEFUROXIME 250 MG TAB PO SCH (11:48)
[2024-01-10] MEDS: SUCRALFATE 1GM/10ML UCUP FT SCH (11:51)
--- NOTE | 2024-01-10 14:05 | P.PN ---
Date of Service: 01/10/24 Subjective Contiues to be nauseous with food Breathing easier, still wheezing Likely discharge in the AM if nausea resolves ROS 10 point ROS as noted above, otherwise negative Physical Exam General: Alert and oriented x3, NAD, calm and cooperative HEENT: Atraumatic, Normocephalic, PERRLA Neck: Supple, 2+ carotid pulse no bruit, JVD not distended Respiratory: Normal air movement, expiratory wheezing Cardiovascular: No edema, Normal pulses, regular rate and rhythm, S1 S2 present, no murmur noted Capillary refill: <2 Seconds Gastrointestinal: Normoactive bowel sounds, Soft and benign on palpation, nontender Musculoskeletal: No contractures, No erythema Integumentary: No breakdown Neurological: Normal speech, Normal strength at 5/5 x4 extr Vitals Reviewed Problem list Acute hypoxic respiratory distress secondary to bilateral pneumonia Leukocytosis Febrile Hypokalemia History of fibromyalgia/rheumatoid arthritis/tremors History of hypertension Cough Assessment and plan Acute hypoxic respiratory distress secondary to bilateral pneumonia Leukocytosis-resolved Febrile-resolved Cough Nausea -CT abdomen pelvis reports "Patchy opacities are present in both lungs, greatest in the right lower lobe likely infection/pneumonia. No acute intra-abdominal or intrapelvic finding." -Chest x-ray reports "Mild to moderate bilateral pulmonary opacities are present likely representing pulmonary infection such as a viral infection. Haziness in the right base could be developing pneumonia. The heart is normal in size. No displaced fractures." -Tylenol as needed -Pain medication -2 LNC O2 PRN- on RA -IV Cefepime and levaquin stopped, Doxycycline and ceftin PO to be continued at discharge -zofran -Follow blood cultures- NGTD -Flu and strep negative -Incentive spirometer -Robitussin -Zofran not controlling nausea, phenergan started 01/08 and carafate added 01/09 Hypokalemia -potassium 3.1 -Replace and monitor as needed History of fibromyalgia/rheumatoid arthritis/tremors History of hypertension -home medications -Supportive care -Blood pressure stable DVT PPx Lovenox Full code LOS Discharge in the AM
[2024-01-11 07:03] LABS: Absolute Basophils 0.1 K/uL (0-0.5); Absolute Eosinophils 0.1 K/uL (0-0.5); Absolute Lymphocytes (CBC) 3.7 K/uL (0.7-4.9); Basophils % 0.9 % (0-1.3); Hematocrit 34.7 % (36.0-45.0); Hemoglobin 12.3 g/dL (12.0-15.0); Lymphocytes % 30.1 % (15.3-44.8); MCV 91.1 fL (80-100); MPV 8.1 fL (7.6-11.3); Platelets 372 thou/uL (152-406); RBC Red Blood Cell Count 3.81 M/uL (3.86-4.86)
[2024-01-11 07:23] LABS: Anion Gap 7.3 mEq/L (5.0-15.0); Magnesium 1.9 mg/dL (1.6-2.4); Phosphorus 3.3 mg/dL (2.5-4.9); Potassium 3.3 mEq/L (3.5-5.1)
--- NOTE | 2024-01-11 08:51 | P.DS ---
Admission Date: 01/07/24 Discharge Date: 01/11/24 Reason for Admission: Bilateral PNA Brief History of Present Illness: Rebecca Sagastume is a 53-year-old female with past medical history of Fibromyalgia, Hypertension, Rheumatoid Arthritis, and tremors who presents to the ED with chief complaint of nausea, vomiting, headache, and fever for 3 weeks. She reports coming back to [place] after traveling but not being exposed to anyone sick. She did not leave the country. On examination, lung sounds with rhonchi, in NAD, on RA, and hemodynamically stable. While in the ED, potassium was replaced, normal saline was given, Levaquin Rocephin and Zithromax were started. Initial vital BP 116 / 87; Pulse 119; Resp 20; Temp 99(TE); Pulse Ox 100% on R/A Laboratory evaluation shows leukocytosis with white count of 17.5, hypokalemia with potassium 3.1, hyperglycemia serum glucose 126. Chest x-ray reports "Mild to moderate bilateral pulmonary opacities are present likely representing pulmonary infection such as a viral infection. Haziness in the right base could be developing pneumonia. The heart is normal in size. No displaced fractures." CT abdomen pelvis reports "Patchy opacities are present in both lungs, greatest in the right lower lobe likely infection/pneumonia. No acute intra-abdominal or intrapelvic finding." Rebecca will be admitted to hospitalist service for further evaluation and treatment of bilateral pneumonia. Hospital Course: Problem list Acute hypoxic respiratory failure secondary to bilateral pneumonia Leukocytosis Febrile Hypokalemia History of fibromyalgia/rheumatoid arthritis/tremors History of hypertension Cough Patient was admitted to the hospital for bilateral pneumonia, she was treated with IV antibiotics and had significant improvement in her leukocytosis, dyspnea. She has been afebrile and breathing on room air and stable for discharge at this time. At discharge she also requested a 1 month supply for home medications including gabapentin, duloxetine, Zofran, prednisone all of which she takes chronically. She will be provided with 1 month of these medications. New medications will include: Cefuroxime 500 mg by mouth twice daily for 5 days Doxycycline 100 mg by mouth twice daily for 5 days Please establish with a primary care doctor in the area and follow-up within the next 1 to 2 weeks Please also follow-up with rheumatology <Marco Fontenot Sonido - Last Filed: 01/11/24 08:49> Admission Date: 01/07/24 Discharge Date: 01/11/24 <Blayne Daniel - Last Filed: 01/11/24 20:52> Disposition: ROUTINE DISCHARGE Discharge Condition: GOOD Vital Signs/Physical Exam: Temp Pulse Resp BP Pulse Ox 97.1 F 63 18 136/76 93 01/11/24 04:00 01/11/24 04:00 01/11/24 04:00 01/11/24 04:00 01/11/24 04:00 General: Alert, In no apparent distress, Oriented x3 HEENT: Atraumatic, PERRLA Neck: Supple, JVD not distended Respiratory: Clear to auscultation bilaterally, Normal air movement Cardiovascular: Regular rate/rhythm, Normal S1 S2 Gastrointestinal: Normal bowel sounds, No tenderness Musculoskeletal: No tenderness Integumentary: No rashes Neurological: Normal speech, Normal tone, Normal affect Laboratory Data at Discharge: WBC 12.50 thou/uL (4.3-10.9) H 01/11/24 06:44 Hgb 12.3 g/dL (12.0-15.0) 01/11/24 06:44 Hct 34.7 % (36.0-45.0) L 01/11/24 06:44 Plt Count 372 thou/uL (152-406) 01/11/24 06:44 Sodium 142 mEq/L (136-145) 01/11/24 06:44 Potassium 3.3 mEq/L (3.5-5.1) L D 01/11/24 06:44 BUN 10 mg/dL (7-18) 01/11/24 06:44 Creatinine 0.69 mg/dL (0.55-1.02) 01/11/24 06:44 Glucose 114 mg/dL (74-106) H 01/11/24 06:44 Phosphorus 3.3 mg/dL (2.5-4.9) 01/11/24 06:44 Magnesium 1.9 mg/dL (1.6-2.4) 01/11/24 06:44 Total Bilirubin 0.9 mg/dL (0.2-1.0) 01/07/24 09:30 AST 26 U/L (15-37) 01/07/24 09:30 ALT 34 U/L (13-56) 01/07/24 09:30 Alkaline Phosphatase 117 U/L (45-117) 01/07/24 09:30 <Marco Fontenot - Last Filed: 01/11/24 08:49> Vital Signs/Physical Exam: Temp Pulse Resp BP Pulse Ox 98.2 F 67 16 140/65 98 01/11/24 08:00 01/11/24 08:00 01/11/24 08:00 01/11/24 08:00 01/11/24 08:00 Laboratory Data at Discharge: WBC 12.50 thou/uL (4.3-10.9) H 01/11/24 06:44 Hgb 12.3 g/dL (12.0-15.0) 01/11/24 06:44 Hct 34.7 % (36.0-45.0) L 01/11/24 06:44 Plt Count 372 thou/uL (152-406) 01/11/24 06:44 Sodium 142 mEq/L (136-145) 01/11/24 06:44 Potassium 3.3 mEq/L (3.5-5.1) L D 01/11/24 06:44 BUN 10 mg/dL (7-18) 01/11/24 06:44 Creatinine 0.69 mg/dL (0.55-1.02) 01/11/24 06:44 Glucose 114 mg/dL (74-106) H 01/11/24 06:44 Phosphorus 3.3 mg/dL (2.5-4.9) 01/11/24 06:44 Magnesium 1.9 mg/dL (1.6-2.4) 01/11/24 06:44 Total Bilirubin 0.9 mg/dL (0.2-1.0) 01/07/24 09:30 AST 26 U/L (15-37) 01/07/24 09:30 ALT 34 U/L (13-56) 01/07/24 09:30 Alkaline Phosphatase 117 U/L (45-117) 01/07/24 09:30 <Blayne Daniel - Last Filed: 01/11/24 20:52> Diet: Regular Activity: Ad jerome Time spent managing pt's care (in minutes): 30 <Marco Fontenot - Last Filed: 01/11/24 08:49> Physician Review: Patient Assessed, Agree with Above Assessment and Plan (Patient seen and examined on rounds this morning with DIRECTOR EQUIPMENT Po. Feels much improved. Afebrile. Stable for discharge) <Blayne Daniel - Last Filed: 01/11/24 20:52> Home Medications: Baclofen 1 tab PO Q8H 08/17/20 Duloxetine HCl 1 cap PO DAILY 08/17/20 Gabapentin 900 cap PO Q8HR 08/17/20 Hydrocodone/Acetaminophen [Hydrocodone-Acetamin 7.5-325] 1 tab PO BID 08/17/20 Meclizine HCl 1 tab PO DAILY 08/17/20 predniSONE [Deltasone*] 1 tab PO DAILY 08/17/20 Pantoprazole [Protonix Tab*] 40 mg PO BIDAC 30 Days #60 tab 08/18/20 Hydroxychloroquine [Plaquenil*] 200 mg PO DAILY 01/07/24 Leflunomide 20 mg PO DAILY 01/07/24 Melatonin 40 mg PO BEDTIME 01/07/24 Ondansetron HCl 4 mg PO BID 01/07/24 Propranolol HCl 20 mg PO DAILY 01/07/24 carvediloL [Carvedilol] 12.5 mg PO DAILY 01/07/24 Baclofen 1 mg PO Q8H PRN 5 Days #15 tab 01/11/24 Cefuroxime [Ceftin*] 500 mg PO BID 5 Days #20 tab 01/11/24 Doxycycline Hyclate 100 mg PO BID 5 Days #10 cap 01/11/24 Duloxetine HCl 60 mg PO DAILY #30 cap 01/11/24 Gabapentin 300 mg PO Q8H 30 Days #90 cap 01/11/24 Ondansetron [Zofran (Odt)*] 4 mg PO Q8H PRN #30 tab 01/11/24 predniSONE [Deltasone*] 10 mg PO DAILY #30 tab 01/11/24 New Medications: Baclofen 1 mg PO Q8H PRN 5 Days #15 tab PRN Reason: Pain Scale 5-7 (Moderate) Cefuroxime [Ceftin*] 500 mg PO BID 5 Days #20 tab predniSONE [Deltasone*] 10 mg PO DAILY #30 tab Doxycycline Hyclate 100 mg PO BID 5 Days #10 cap Duloxetine HCl 60 mg PO DAILY #30 cap Gabapentin 300 mg PO Q8H 30 Days #90 cap Ondansetron [Zofran (Odt)*] 4 mg PO Q8H PRN #30 tab PRN Reason: Nausea / Vomiting Physician Discharge Instructions: Physician discharge instructions Patient was admitted to the hospital for bilateral pneumonia, she was treated with IV antibiotics and had significant improvement in her leukocytosis, dyspnea. She has been afebrile and breathing on room air and stable for discharge at this time. At discharge she also requested a 1 month supply for home medications including gabapentin, duloxetine, Zofran, prednisone all of which she takes chronically. She will be provided with 1 month of these medications. New medications will include: Cefuroxime 500 mg by mouth twice daily for 5 days Doxycycline 100 mg by mouth twice daily for 5 days Please establish with a primary care doctor in the area and follow-up within the next 1 to 2 weeks Please also follow-up with rheumatology Followup: NONE,NONE [Primary Care Provider] - 1-2 Weeks
[2024-01-11 09:27] VITALS: BP 140/65; TEMP 98.2
[2024-01-11 09:43] LABS: Blood Morphology Comment NOT SEEN (NOT SEEN); Eosinophils 1 % (0-3); Platelet Estimate ADEQ
== END 2024-01-11 11:33 | disposition home or self-care (01) | DRG 193 ==
LOC: ER 08:37 → ERHOLD 14:01 → 4TH 16:43
PROVIDERS: ADMIT Internal Medicine; ATTEND Hospitalist
DX: J18.9 Pneumonia, unspecified organism (principal); J96.01 Acute respiratory failure with hypoxia; I10 Essential (primary) hypertension; M06.9 Rheumatoid arthritis, unspecified; E87.6 Hypokalemia; M79.7 Fibromyalgia; R73.9 Hyperglycemia, unspecified; Z88.2 Allergy status to sulfonamides; Z11.52 Encounter for screening for COVID-19; Z79.02 Long term (current) use of antithrombotics/antiplatelets; Z90.49 Acquired absence of other specified parts of digestive tract; Z79.52 Long term (current) use of systemic steroids; Z79.899 Other long term (current) drug therapy; Z90.710 Acquired absence of both cervix and uterus
CPT/HCPCS: 31720; 36415; 71045; 71260; 74177; 80048; 80076; 81001; 83605; 83735; 83880; 84100; 84132; 84484; 85025; 87040; 87070; 87081; 87804; 87811; 93005; 94010; 94640; 96365; 96366; 96367; 96375; 99285; J0692; J0696; J1650; J2405; J2550; J7030; J7050; J7512; J7613; J7799; Q9967